=== PATIENT | male | born 1950 | race African-American/Black ===

== ENCOUNTER 2017-04-28 11:28 | Emergency (ER) | payer OTHER ==
--- NOTE | 2017-04-28 13:05 | ED Physician Documentation ---
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 Started with fevers and body aches and then rapidly developed into chest congestion and productive cough which has been persistent but without current fevers or shortness of breath.) Review of Systems Constitutional: reports: Fatigue. denies: Fever, Chills Ears: denies: Ear pain Nose: reports: Rhinorrhea / runny nose, Congestion Throat: denies: Sore throat Cardiac: reports: Chest pain / pressure (with cough only) Respiratory: reports: Cough. denies: Dyspnea GI: denies: Abdominal Pain PD PAST MEDICAL HISTORY - Past Medical History Past Medical History: Yes Cardiovascular: Hypertension GI: GERD - Past Surgical History Past Surgical History: Yes Ortho: Arthroscopic surgery - Present Medications Home Medications: Ambulatory Orders Medication Instructions Recorded Confirmed Atenolol [Tenormin] 0 mg PO ONCE 10/27/12 10/27/12 Albuterol Sulfate [Proventil Hfa 1 - 2 puffs IH Q4H PRN #1 04/28/17 Inhaler] [email or web address] Azithromycin [Zithromax] 250 mg PO DAILY #6 tablet 04/28/17 guaiFENesin/CODEINE [Robitussin AC] 5 - 10 ml PO Q6H PRN #120 ml 04/28/17 raNITIdine [Zantac] 0 BID 04/28/17 - Allergies Allergies/Adverse Reactions: Allergies Allergy/AdvReac Type Severity Reaction Status Date / Time No Known Drug Allergies Allergy Verified 04/28/17 12:58 - Social History Does the pt smoke?: No Smoking Status: Never smoker Does the pt drink ETOH?: No Does the pt have substance abuse?: No - Immunizations Immunizations are current?: Yes PD ED PE NORMAL - Vitals Vital signs reviewed: Yes - General General: Alert and oriented X 3, No acute distress - HEENT HEENT: PERRL, EOMI - Neck Neck: Supple, no meningeal sign, No bony TTP - Cardiac Cardiac: RRR, No murmur - Respiratory Respiratory: No respiratory distress, Other (bibasilar crackles and mild wheezes throughout, no focal findings.) - Abdomen Abdomen: Non tender - Extremities Extremities: No edema, No calf tenderness / cord - Neuro Neuro: Alert and oriented X 3, Normal speech Results - Vitals Vitals: Vital Signs - 24 hr 04/28/17 11:34 Temperature 37.0 C Heart Rate 67 Respiratory 20 Rate Blood Pressure 164/85 H O2 Saturation 97 Oxygen O2 Source Room air - EKG (time done) 1142 Rate: Rate (enter#) (66) Rhythm: NSR (with PACs) [place]: Normal Intervals: Prolonged [place] QRS: Normal Ischemia: T wave inversion (Jeevan V3-V6) Compare to prior EKG: Unchanged from prior EKG (no sig ischemic chg since ) Computer interpretation: Agree with computer PD MEDICAL DECISION MAKING - ED course ED course: 67-year-old gentleman with clinically what sounds like bronchitis. He does have an abnormal EKG, but there is no ischemic change since 2012, and that EKG was documented as having no EKG changes over the prior 4 years. He was given a copy of EKG to share with his doctor, but clinically this is not related to his ongoing illness which is bronchitic. Departure - Departure Disposition: Home, Self Care Clinical Impression: Bronchitis, Abnormal EKG Condition: Good Record reviewed to determine appropriate education?: Yes Instructions: ED Bronchitis Asthmatic Prescriptions: Albuterol Sulfate [Proventil Hfa Inhaler] 1 - 2 puffs IH Q4H PRN #1 [email or web address] PRN Reason: Cough Azithromycin [Zithromax] 250 mg PO DAILY #6 tablet guaiFENesin/CODEINE [Robitussin AC] 5 - 10 ml PO Q6H PRN #120 ml PRN Reason: Cough Comments: Follow-up with your doctor, next available appointment. Share the copy of the EKG with him, he may want to order follow-up testing based on this, but as we discussed this is not related to your ongoing illness today. Your blood pressure was elevated today on check into the emergency department. This does not mean that you have hypertension, it is a common phenomenon to come to the emergency department and have elevated blood pressure. I recommend that you see your primary care physician within the week to have it rechecked when you are feeling better.
[2017-04-28 13:14] VITALS: BP 149/95
== END 2017-04-28 13:09 | disposition home or self-care (01) ==
LOC: ED 11:28
DX: J40 Bronchitis, not specified as acute or chronic (principal); R94.31 Abnormal electrocardiogram [ECG] [EKG]; I10 Essential (primary) hypertension; K21.9 Gastro-esophageal reflux disease without esophagitis
CPT/HCPCS: 93005; 99283; 99284

== ENCOUNTER 2018-05-02 05:48 | Emergency (ER) | payer OTHER ==
--- NOTE | 2018-05-02 05:52 | ED Physician Documentation ---
PD HPI URI - Stated complaint Stated Complaint: SORE THROAT - History obtained from History obtained from: Patient - History of Present Illness Timing - onset: How many days ago (2) Timing duration: Days (2) Timing details: Abrupt onset, Still present Associated symptoms: Fever (mild), Sore throat, Swollen nodes. No: Nasal congestion, Rhinorrhea, Dry cough Contributing factors: No: Sick contact Worsened by: Other (swallowing) Recently seen: Not recently seen Review of Systems Constitutional: reports: Fever (mild) Nose: denies: Rhinorrhea / runny nose, Congestion Throat: reports: Sore throat Respiratory: denies: Cough GI: denies: Nausea, Vomiting, Diarrhea Skin: denies: Rash PD PAST MEDICAL HISTORY - Past Medical History Cardiovascular: Hypertension GI: GERD - Past Surgical History Past Surgical History: Yes Ortho: Arthroscopic surgery - Present Medications Home Medications: Ambulatory Orders Medication Instructions Recorded Confirmed Atenolol [Tenormin] 25 mg PO DAILY 10/27/12 05/02/18 raNITIdine [Zantac] 150 mg PO BID 04/28/17 05/02/18 Cephalexin [Keflex] 500 mg PO Q6H #28 capsule 05/02/18 Dexamethasone [Decadron] 4 mg PO DAILY #5 tablet 05/02/18 Naproxen 500 mg PO BID #20 tablet 05/02/18 Triamterene/Hydrochlorothiazid 1 cap PO DAILY 05/02/18 05/02/18 [Triamterene-Hctz 37.5-25 mg Cp] - Allergies Allergies/Adverse Reactions: Allergies Allergy/AdvReac Type Severity Reaction Status Date / Time No Known Drug Allergies Allergy Verified 05/02/18 05:57 - Social History Does the pt smoke?: No Smoking Status: Never smoker Does the pt drink ETOH?: No Does the pt have substance abuse?: No - Immunizations Immunizations are current?: Yes PD ED PE NORMAL - Vitals Vital signs reviewed: Yes - General General: Alert and oriented X 3, Well developed/nourished, Other (appears in p ain with swallowing. Slight distortion of voice.) - HEENT HEENT: Ears normal, Dentition benign. No: Pharynx benign (pharynx with moderate redness without apparent exudates. There is some left peritonsillar mild swelling without bulging. ) - Neck Neck: Supple, no meningeal sign, Other (anterior adenopathy, mild, tender. ) - Cardiac Cardiac: RRR, No murmur - Respiratory Respiratory: Clear bilaterally - Derm Derm: Normal color, Warm and dry Results - Vitals Vitals: Vital Signs - 24 hr 05/02/18 06:00 Temperature 36.7 C Heart Rate 57 L Respiratory 18 Rate Blood Pressure 189/89 H O2 Saturation 100 Oxygen O2 Source Room air PD MEDICAL DECISION MAKING - ED course Complexity details: considered differential (Very focused symptoms of sore throat and significant pain with swallowing and slight distortion of voice. There is no obvious peritonsillar abscess but some redness and mild swelling suggestive of peritonsillar cellulitis. It does not have the exudates consistent with obvious strep but still be concerned about a bacterial cause. We will treat him with anti-inflammatories and antibiotics.), d/w patient Departure - Departure Disposition: 01 Home, Self Care Clinical Impression: Peritonsillar cellulitis Acute tonsillitis Qualifiers: Pharyngitis/tonsillitis etiology: unspecified etiology Qualified Code(s): J03.90 - Acute tonsillitis, unspecified Condition: Stable Record reviewed to determine appropriate education?: Yes Instructions: ED Peritonsillar Infec Abx No I andD Prescriptions: Cephalexin [Keflex] 500 mg PO Q6H #28 capsule Dexamethasone [Decadron] 4 mg PO DAILY #5 tablet Naproxen 500 mg PO BID #20 tablet Comments: Your symptoms being so focused in the tonsil area would be suggestive of bacterial infection. We will treated with cephalexin antibiotic as directed for a week. Decadron steroid for inflammation daily for 5 more days. Naproxen anti-inflammatory for pain as well. Add Tylenol or the hydrocodone if needed initially for worse pain. Recheck if not improving over the next several days.
[2018-05-02] MEDS ORDERED: ACETAMINOPHEN 325 MG TABLET PO STA (06:15)
[2018-05-02] MEDS ORDERED: IBUPROFEN 600 MG TABLET PO STA (06:15)
[2018-05-02] MEDS ORDERED: cephALEXin 250 MG CAPSULE PO STA (06:15)
[2018-05-02] MEDS ORDERED: HYDROcod/ACET 5/325 Prepack 4 PO STA (06:15)
[2018-05-02] MEDS ORDERED: DEXAMETHASONE 10 MG/ML VIAL PO STA (06:15)
[2018-05-02 06:39] VITALS: BP 198/100
== END 2018-05-02 06:40 | disposition home or self-care (01) ==
LOC: ED 05:48
DX: J03.90 Acute tonsillitis, unspecified (principal); I10 Essential (primary) hypertension
CPT/HCPCS: 87070; 87430; 99283; A9270

== ENCOUNTER 2018-09-23 22:53 | Emergency (ER) | payer OTHER ==
--- NOTE | 2018-09-23 23:04 | ED Physician Documentation ---
PD HPI NECK PAIN - Stated complaint Stated Complaint: NECK PX - Chief complaint Chief Complaint: Trauma Ch/Bk - History obtained from History obtained from: Patient, Family - History of Present Illness Timing - onset: Today, Other (All day) Timing - details: Abrupt onset Pain level now: 8 Location: Upper, Right, Left Quality: Pain Associated symptoms: No: Fever, Weakness, Numbness, Incontinent of urine Improves with: Nothing Worsened by: Movement Contributing factors: Other (Has a sitdown job) Recently seen: Not recently seen - Additional information Additional information: Is a 68-year-old man who presents with his complains that he woke up this morning and his neck was a little sore and is gotten progressively more painful through the day. Is worse with movement. He says it starts at the base of his skull bilaterally and comes down all the way into the tops of his shoulders. He has not noted any exacerbating factors and he took 6 ibuprofen tablets at one time through 4 hours prior to presentation without relief of his pain. He still had an 8 out of 10. Denies pain radiating down his arms or legs but he did have some pain in his left wrist 4 days ago that was quite excruciating to the point he was thinking about going to the doctor then it just resolved. He developed a sore throat 2 days ago and that has also resolved. Denies any history of gout and he has had no other joint involvement. Patient denies any fever. No numbness or tingling into the arms or legs. He has not noted any visual changes. He said no dysuria. 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 Review of Systems Constitutional: denies: Fever Eyes: denies: Loss of vision, Decreased vision Throat: reports: Sore throat Respiratory: denies: Dyspnea GI: denies: Nausea, Vomiting : denies: Dysuria Skin: denies: Rash Musculoskeletal: reports: Neck pain, Joint pain Neurologic: denies: Focal weakness, Numbness, Syncope PD PAST MEDICAL HISTORY - Past Medical History Cardiovascular: Hypertension GI: GERD - Past Surgical History Past Surgical History: Yes Ortho: Arthroscopic surgery - Present Medications Home Medications: Ambulatory Orders Medication Instructions Recorded Confirmed Atenolol [Tenormin] 25 mg PO DAILY 10/27/12 05/02/18 RX: raNITIdine [Zantac] 150 mg PO BID 04/28/17 05/02/18 Cephalexin [Keflex] 500 mg PO Q6H #28 capsule 05/02/18 RX: Naproxen 500 mg PO BID #20 tablet 05/02/18 Triamterene/Hydrochlorothiazid 1 cap PO DAILY 05/02/18 05/02/18 [Triamterene-Hctz 37.5-25 mg Cp] dexAMETHasone [Decadron] 4 mg PO DAILY #5 tablet 05/02/18 Hydrocodone/Acetaminophen 1 - 2 each PO Q6H PRN #14 tablet 09/24/18 [Hydrocodon-Acetaminophen 5-325] - Allergies Allergies/Adverse Reactions: Allergies Allergy/AdvReac Type Severity Reaction Status Date / Time No Known Drug Allergies Allergy Verified 09/23/18 23:01 - Social History Does the pt smoke?: No Smoking Status: Never smoker Does the pt drink ETOH?: No Does the pt have substance abuse?: No - Immunizations Immunizations are current?: Yes - POLST Patient has POLST: No PD ED PE NORMAL - Vitals Vital signs reviewed: Yes - General General: Alert and oriented X 3, Well developed/nourished, Other (Patient looks uncomfortable with his head looking down. He does not want to lift his head up and look up because it is clearly uncomfortable.) - HEENT HEENT: Atraumatic, PERRL, Moist mucous membranes, Pharynx benign - Neck Neck: No bony TTP, No adenopathy, Thyroid normal, Other (There is tenderness with palpation across the cervical paraspinal muscles bilaterally from the insertion on the occiput down to the tops of the shoulders.) - Cardiac Cardiac: RRR, No murmur - Respiratory Respiratory: No respiratory distress, Clear bilaterally - Back Back: No CVA TTP - Derm Derm: Normal color, No rash - Extremities Extremities: No deformity, Other (Minimal edema.) - Neuro Neuro: Alert and oriented X 3, drafter electronic 2-12 intact, No motor deficit, No sensory deficit, Normal speech, Other (Reflexes symmetrical bilaterally) - Psych Psych: Normal mood, Normal affect Results - Vitals Vitals: Vital Signs - 24 hr 09/23/18 09/24/18 23:25 03:30 Temperature 36.5 C 36.5 C Heart Rate 55 L 57 L Respiratory 18 16 Rate Blood Pressure 170/95 H 176/111 H O2 Saturation 100 100 Oxygen O2 Source Room air - Rads (name of study) cervical xray Radiology: EMP read contemporaneously, See rad report (Degen changes, most pronounced at C3-4) PD MEDICAL DECISION MAKING - ED course Complexity details: reviewed results, re-evaluated patient, d/w patient ED course: Patient was given 2 hydrocodone tablets and felt significantly better. I think his pain is due to the degenerative changes and subsequent muscle spasms. I think his job contributes to this as well. Is recommended to ice the neck take ibuprofen and is given a prescription for hydrocodone just 14 tablets. Of encouraged him to follow-up with his primary care provider if the pain persists. Departure - Departure Disposition: 01 Home, Self Care Clinical Impression: Neck pain Condition: Good Instructions: ED Neck Back Pain General Follow-Up: KAUR CONRAD MD [Primary Care Provider] - Prescriptions: Hydrocodone/Acetaminophen [Hydrocodon-Acetaminophen 5-325] 1 - 2 each PO Q6H PRN #14 tablet PRN Reason: pain Comments: Ice can sometimes help the pain. Take ibuprofen 3 to 4 tablets every 8 hours with food as needed for pain. You can use the hydrocodone if needed but do not drive or operate machinery if you are taking that medication and do not take additional Tylenol. Follow-up with your primary care provider if the pain persists for further management. Discharge Date/Time: 09/24/18 03:30
[2018-09-24] MEDS ORDERED: HYDROcod/ACETAM 5/325 MG TABLET PO STA (01:27)
--- NOTE | 2018-09-24 02:37 | XRAY Report ---
Reason: neck pain Procedure Date: 09/24/2018 Accession Number: [id number] / [id number] Procedure: XR - Cervical Spine 2 View CPT Code: FULL RESULT: EXAM: CERVICAL SPINE RADIOGRAPHY EXAM DATE: 09/24/2018 02:17 AM. CLINICAL HISTORY: Neck pain. COMPARISONS: None. TECHNIQUE: 3 views. FINDINGS: Alignment: Normal. No spondylolisthesis or scoliosis. Bones: The cervical vertebral bodies and posterior elements are well visualized from the skull base through C7-T1. No fractures or bone lesions. Disks: There is cervical spondylosis with degeneration and narrowing of the disks C6-C7. There are marginal osteophytes. In addition there are degenerative changes at the facet joints from C3-C7. The lateral injection is compatible with fusion across the C2-C3 levels both at the level of the disk and the posterior elements. The fusion is likely congenital. Soft Tissues: Normal. No prevertebral soft tissue swelling. The visualized lung apices are clear. IMPRESSION: 1. Cervical spondylosis as described mostly involving the disk C6-C7 and the facet joints. 2. 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 RADIA
[2018-09-24 03:41] VITALS: BP 176/111
== END 2018-09-24 03:30 | disposition home or self-care (01) ==
LOC: ED 22:53
DX: M54.2 Cervicalgia (principal); I10 Essential (primary) hypertension
CPT/HCPCS: 72040; 99283; 99284; A9270

== ENCOUNTER 2020-07-11 16:12 | Inpatient (IN) | payer OTHER ==
[2020-07-11 16:55] LABS: BASOPHILS # (AUTO) 0.1 10^3/uL (0.0-0.1); BASOPHILS % (AUTO) 0.5 %; EOSINOPHILS # (AUTO) 0.1 10^3/uL (0.0-0.7); EOSINOPHILS % (AUTO) 0.5 %; HGB - HEMOGLOBIN 16.3 g/dL (14.0-18.0); LYMPHOCYTES # (AUTO) 1.2 10^3/uL (1.5-3.5); LYMPHOCYTES % (AUTO) 9.8 %; MEAN CORPUSCULAR HEMOGLOBIN 29.2 pg (27.0-31.0); MEAN CORPUSCULAR VOLUME 85.9 fL (80.0-94.0); MEAN PLATELET VOLUME 10.2 fL (7.4-11.4); MONOCYTES % (AUTO) 8.1 %; NEUTROPHILS # (AUTO) 10.2 10^3/uL (1.5-6.6); NEUTROPHILS % (AUTO) 80.9 %; PLT - PLATELET COUNT 358 10^3/uL (130-450); RED BLOOD COUNT 5.59 10^6/uL (4.70-6.10); WHITE BLOOD COUNT 12.6 x10^3/uL (4.8-10.8)
[2020-07-11 17:09] LABS: ALBUMIN 3.4 g/dL (3.2-5.5); ALBUMIN/GLOBULIN RATIO 0.9 (1.0-2.2); BILIRUBIN,TOTAL 1.1 mg/dL (0.2-1.0); CREATININE 3.7 mg/dL (0.6-1.2); TOTAL PROTEIN 7.4 g/dL (6.7-8.2)
--- OUTSIDE RECORDS SUMMARY | 2020-07-11 17:11 | EXTERNAL MEDICAL SUMMARY RPT | Continuity of Care Document ---
:1950 Demographics Phone Unavailable Preferred Language Unknown Marital Status Unknown Restorationist Affiliation Unknown Race Unknown Ethnic Group Unknown Author Organization [facility] Address [address] [id number] Phone Allergies Encounters Medications Problems Results
[2020-07-11] MEDS ORDERED: SODIUM CHLORIDE 0.9% 1,000 ML IV STA ×2 (17:37→18:09)
[2020-07-11] MEDS ORDERED: MORPHINE 2 MG/ML CARPUJECT IVP STA (18:09)
[2020-07-11] MEDS ORDERED: ONDANSETRON 4 MG/2 ML VIAL IVP STA (18:09)
--- NOTE | 2020-07-11 18:47 | CT Report ---
PROCEDURE: Abdomen/Pelvis WO INDICATIONS: diffuse abd pain, vomiting, renal failure TECHNIQUE: Noncontrast 5 mm thick sections acquired from the diaphragms to the symphysis. 5 mm coronal and sagi ttal reformats were then performed. For radiation dose reduction, the following was used: automated exposure control, adjustment of mA and/or kV according to patient size. COMPARISON: None. FINDINGS: Image quality: Excellent. ABDOMEN: Lung bases: Lung bases are clear. Heart size is normal. Enlarged lymph nodes noted in the pericardi al fat compatible Solid organs: Multiple large and small hypoattenuating lesions are noted in the liver highly suspicio us for metastatic disease. Gallbladder is poorly visualized, but grossly normal. Pancreas is normal in contours. No adrenal nodules. Kidneys are normal in size, without hydronephrosis or nephrolithia sis. Bilateral rounded hypoattenuating lesions in the kidneys likely represent cysts, but can't be de finitely characterized without the benefit of intravenous contrast. Peritoneum and bowel: There is a large soft tissue density mass with irregular margins involving the distal left lesser curvature of the stomach, the head of the pancreas and the proximal transverse co narcisa concerning for primary malignancy or could be arising from the stomach pancreas are:. Unenhanced bowel loops demonstrate normal wall thickness and caliber. Moderate amount of ascites scattered thro ughout the abdomen and pelvis. No free air. Nodes and vessels: Multiple enlarged lymph nodes noted in the right upper quadrant mesentery compatib le with metastatic lymphadenopathy. Aortocaval retroperitoneal lymphadenopathy noted compatible with metastatic disease. Scattered nodules noted in the omentum and mesentery concerning for early metasta tic disease. Aorta and inferior vena cava are normal in caliber. Scattered atherosclerotic calcificat ions are noted in the abdominal and pelvic vasculature. Miscellaneous: No ventral hernias. PELVIS: Genitourinary: Bladder wall thickness is normal. Metastatic disease. Miscellaneous: No inguinal hernias or adenopathy. Bones: No suspicious bony lesions. No vertebral body compression fractures. Spine degenerative disc disease and facet arthropathy are noted. IMPRESSION: 1. Large soft tissue density mass involving the distal distal stomach, pancreatic head and transverse colon highly suspicious for primary malignancy which could be arising from the stomach, colon or christensen creas. 2. Hepatic metastatic disease. 3. Mesenteric and retroperitoneal metastatic lymphadenopathy. Metastatic lymphadenopathy also noted i n the visualized pericardial fat 4. Moderate amount of ascites. No free intraperitoneal air 5. No dilated loops of bowel. Reviewed by: Gloria Alvarez MD, PhD on 07/11/2020 6:45 PM PDT Approved by: Gloria Alvarez MD, PhD on 07/11/2020 6:45 PM PDT Station ID: [id number]
--- NOTE | 2020-07-11 18:47 | ED Physician Documentation ---
History of Present Illness - Stated complaint Stated Complaint: VOMITING, NAUSEA,BLOATING - Chief complaint Chief Complaint: Abd Pain - History obtained from History obtained from: Patient - History of Present Illness Timing: How many days ago (8) Pain level max: 5 Pain level now: 4 - Additonal information Additional information: 70-year-old male presents to the emergency department with vomiting and abdominal pain for the past week. He states that nothing makes it better or worse. Has been unable to keep anything down. States his abdomen feels swollen and like he has bad "reflux". No fevers. No chills. Review of Systems Ten Systems: 10 systems reviewed and negative Constitutional: denies: Fever, Chills Respiratory: denies: Cough GI: reports: Abdominal Pain, Nausea, Vomiting. denies: Hematemesis, Bloody / black stool : denies: Dysuria Skin: denies: Rash Musculoskeletal: denies: Neck pain, Back pain Neurologic: denies: Headache PD PAST MEDICAL HISTORY - Past Medical History Past Medical History: Yes Cardiovascular: Hypertension GI: GERD - Past Surgical History Past Surgical History: Yes Ortho: Arthroscopic surgery - Present Medications Home Medications: Ambulatory Orders Medication Instructions Recorded Confirmed atenoloL [Tenormin] 25 mg PO DAILY 10/27/12 05/02/18 raNITIdine [Zantac] 150 mg PO BID 04/28/17 05/02/18 Naproxen 500 mg PO BID #20 tablet 05/02/18 Triamterene/Hydrochlorothiazid 1 cap PO DAILY 05/02/18 05/02/18 [Triamterene-Hctz 37.5-25 mg Cp] cephALEXin [Keflex] 500 mg PO Q6H #28 capsule 05/02/18 dexAMETHasone [Decadron] 4 mg PO DAILY #5 tablet 05/02/18 Hydrocodone/Acetaminophen 1 - 2 each PO Q6H PRN #14 tablet 09/24/18 [Hydrocodon-Acetaminophen 5-325] - Allergies Allergies/Adverse Reactions: Allergies Allergy/AdvReac Type Severity Reaction Status Date / Time No Known Drug Allergies Allergy Verified 07/11/20 16:23 - Social History Does the pt smoke?: No Smoking Status: Never smoker Does the pt drink ETOH?: No Does the pt have substance abuse?: No - Immunizations Immunizations are current?: Yes - POLST Patient has POLST: No PD ED PE NORMAL - Vitals Vital signs reviewed: Yes - General General: Alert and oriented X 3, No acute distress, Well developed/nourished - HEENT HEENT: PERRL, Moist mucous membranes - Neck Neck: Supple, no meningeal sign - Cardiac Cardiac: RRR, Strong equal pulses - Respiratory Respiratory: No respiratory distress, Clear bilaterally - Abdomen Abdomen: Soft, Non tender, Other (Distended abdomen, nontender) - Back Back: No CVA TTP, No spinal TTP - Derm Derm: Warm and dry - Extremities Extremities: No edema - Neuro Neuro: Alert and oriented X 3 - Psych Psych: Normal mood, Normal affect Results - Vitals Vitals: Vital Signs - 24 hr 07/11/20 07/11/20 07/11/20 16:16 16:23 18:23 Temperature 36.7 C 36.7 C 36.6 C Heart Rate 78 78 76 Respiratory 19 19 18 Rate Blood Pressure 140/80 H 140/80 H 136/80 H O2 Saturation 97 97 98 Oxygen O2 Source Room air - Labs Labs: Laboratory Tests 07/11/20 07/11/20 16:51 16:51 WBC 12.6 H RBC 5.59 Hgb 16.3 Hct 48.0 MCV 85.9 MCH 29.2 MCHC 34.0 RDW 13.0 Plt Count 358 MPV 10.2 Neut # (Auto) 10.2 H Lymph # (Auto) 1.2 L [place] # (Auto) 1.0 Eos # (Auto) 0.1 Baso # (Auto) 0.1 Absolute Nucleated RBC 0.00 Nucleated RBC % 0.0 Sodium 134 L Potassium 4.0 Chloride 98 L Carbon Dioxide 22 Anion Gap 14.0 H BUN 64 H Creatinine 3.7 H Estimated GFR (MDRD) 20 L Glucose 130 H Calcium 9.0 Total Bilirubin 1.1 H AST 13 ALT 11 Alkaline Phosphatase 48 Total Protein 7.4 Albumin 3.4 Globulin 4.0 Albumin/Globulin Ratio 0.9 L Lipase 19 L - Rads (name of study) CT abdomen pelvis Radiology: Prelim report reviewed, EMP read contemporaneously, See rad report PD MEDICAL DECISION MAKING - ED course Complexity details: reviewed results, re-evaluated patient, considered differential, d/w patient, d/w [employer] consultant ED course: 70-year-old male presents to the emergency department with vomiting, dehydration, renal failure. Also found to have a large soft tissue density mass in the distal stomach, pancreatic head and transverse colon, possible malignancy. Appears to have metastatic disease as well. His baseline creatinine is around 1. It is at 3.[address] the patient in the hospital for vomiting, dehydration and renal failure. Discussed the case with Dr. Alejandra, hospitalist who accepts This document was made in part using voice recognition software. While efforts are made to proofread this document, sound alike and grammatical errors may occur. IMPRESSION: 1. Large soft tissue density mass involving the distal distal stomach, christensen creatic head and transverse colon highly suspicious for primary malignancy which could be arising from the stomach, colon or pancreas. 2. Hepatic metastatic disease. 3. Mesenteric and retroperitoneal metastatic lymphadenopathy. Metastatic lymphadenopathy also noted in the visualized pericardial fat 4. Moderate amount of ascites. No free intraperitoneal air 5. No dilated loops of bowel. Departure - Departure Disposition: 66 [facility] DC/Xfer Clinical Impression: Renal failure Qualifiers: Renal failure chronicity: acute Acute renal failure type: unspecified Qualified Code(s): N17.9 - Acute kidney failure, unspecified Ascites Qualifiers: Ascites type: malignant Qualified Code(s): R18.0 - Malignant ascites Metastatic cancer Qualifiers: Area of secondary neoplastic involvement: unspecified site Qualified Code(s): C79.9 - Secondary malignant neoplasm of unspecified site Condition: Stable Discharge Date/Time: 07/11/20 20:10
[2020-07-11] MEDS ORDERED: MORPHINE 2 MG/ML CARPUJECT IVP PRN (19:32)
[2020-07-11] MEDS ORDERED: SODIUM CHLORIDE FLUSH 0.9% 10 ML SYRINGE IVP PRN (19:32)
[2020-07-11] MEDS ORDERED: ACETAMINOPHEN 325 MG TABLET PO PRN (19:32)
--- NOTE | 2020-07-11 19:40 | HISTORY & PHYSICAL EXAMINATION ---
Chief Complaint - Chief Complaint Chief Complaint: Nausea and vomiting. History of Present Illness - Admitted From Admitted From:: Home - History Obtained From Records Reviewed: Yes History obtained from: Patient, ER Physician, EMR - History of Present Illness HPI Comment/Other: This is a 70-year-old male with a past medical history significant for hypertension, GERD, and history of lymphoma in remission since 1996 who presents today complaining of nausea/vomiting along with abdominal pain. He states his symptoms began about 4 to 5 days ago and have progressed on a daily basis. He has been unable to keep anything down during this time. He was able to only keep down a little bit of water here and there but for the most part he will vomit after having any oral intake. He denies any hematemesis. He does complain of heartburn and he is on Prilosec at home. He also has associated epigastric abdominal pain and has also had the hiccups which are becoming more prominent over the past few days. He also feels like his abdomen is more distended. He also feels constipated and his last bowel movement was nearly 1 week ago. He is passing gas. He reports no fevers, chills. He has never had a colonoscopy or endoscopy. He has done FOBT for colon cancer screening. He does report a history of lymphoma which was treated in 1996 at [facility]. He no longer sees oncology. In the emergency department, he was found to have acute kidney injury with a creatinine of 3.7 and a BUN of 64. A CT of the abdomen pelvis without contrast revealed an abdominal mass which may be of distal gastric origin versus pancreas versus colon as well as evidence of metastatic disease and ascites. He was given Zofran and IV fluids in the emergency department. Given the above findings, medicine was consulted for admission. I did discuss goals of care with the patient and he would like to be a full code. History - Past Medical History Cardiovascular: reports: Hypertension GI: reports: GERD MRSA Hx?: No - Past Surgical History Ortho: reports: Arthroscopic surgery - Family & Social History Family History Comment/Other: He denies any family history of cancer. He has one brother who from heart failure. His father from a stroke. Living arrangement: At home Living Situation: With spouse/s.o. Social History Notes: He lives at home with his . He works as a ict security specialist. He has lived in the [place] for over 15 years. He smoked a half a pack a day for about 20 years but quit in 1994. He denies any significant alcohol use. - POLST Patient has POLST: No Meds/Allgy - Home Medications Home Medications: Ambulatory Orders Medication Instructions Recorded Confirmed atenoloL [Tenormin] 25 mg PO DAILY 10/27/12 05/02/18 raNITIdine [Zantac] 150 mg PO BID 04/28/17 05/02/18 Naproxen 500 mg PO BID #20 tablet 05/02/18 Triamterene/Hydrochlorothiazid 1 cap PO DAILY 05/02/18 05/02/18 [Triamterene-Hctz 37.5-25 mg Cp] cephALEXin [Keflex] 500 mg PO Q6H #28 capsule 05/02/18 dexAMETHasone [Decadron] 4 mg PO DAILY #5 tablet 05/02/18 Hydrocodone/Acetaminophen 1 - 2 each PO Q6H PRN #14 tablet 09/24/18 [Hydrocodon-Acetaminophen 5-325] - Allergies Allergies/Adverse Reactions: Allergies Allergy/AdvReac Type Severity Reaction Status Date / Time No Known Drug Allergies Allergy Verified 07/11/20 16:23 Review of Systems - Constitutional Constitutional: denies: Fatigue, Fever, Chills, Poor appetite, Weight loss - Ears, Nose & Throat Ears, Nose & Throat: reports: Sore throat. denies: Nasal discharge, Nasal congestion - Cardiovascular Cariovascular: denies: Chest pain, Edema, Lightheadedness, Exertional dyspnea, Decr. exercise tolerance - Respiratory Respiratory: denies: Cough, SOB at rest, SOB with exertion - Gastrointestinal Gastrointestinal: reports: Abdominal pain, Abdominal distention, Constipation, Change in bowel habits, Nausea, Vomiting, Reflux/heartburn, Bloating, Other (Hiccups.). denies: Bile emesis, Thomas blood emesis - Genitourinary Genitourinary: denies: Dysuria, Frequency, Hematuria - Integumentary Integumentary: denies: Rash - Neurological Neurological: denies: General weakness, Focal weakness, Dizziness - Hematologic/Lymphatic Hematologic/Lymphatic: denies: Bruising, Bleeding tendencies - All Other Systems All Other Systems: reports: Reviewed and negative Prior Level of Functionality: He is independent with his ADL's. Exam - Vital Signs Reviewed Vital Signs: Yes Vital Signs: Vital Signs x48h Temp Pulse Resp BP Pulse Ox 07/11/20 18:23 36.6 C 76 18 136/80 H 98 07/11/20 16:23 36.7 C 78 19 140/80 H 97 07/11/20 16:16 36.7 C 78 19 140/80 H 97 - Physical Exam General Appearance: positive: No acute distress, Alert Eyes Bilateral: positive: Normal inspection, Conjunctivae nml ENT: positive: ENT inspection nml Neck: positive: Nml inspection Respiratory: positive: No respiratory distress. negative: Wheezes, Rales Cardiovascular: positive: Regular rate & rhythm, No murmur. negative: Tachycardia, Systolic murmur Abdomen: positive: Nml bowel sounds, Tenderness (Epigastric and left lower quadrant.). negative: No distention (Abdomen is distended.), Guarding, Rebound Skin: positive: Warm, Dry Extremities: positive: No pedal edema Neurologic/Psychiatric: positive: Motor nml. negative: Disoriented to person, Disoriented to place Conclusion/Plan - Problem List (1) Acute renal failure Conclusion/Plan: This is likely prerenal in injury secondary to poor oral intake due to the naus ea and vomiting. CT did not reveal evidence of obstruction. He is also on diuretics at home. At this time, we will hydrate him with IV lactated Ringer's. Hold his home hydrochlorothiazide. Avoid nephrotoxins. Monitor renal function and urine output. (2) Abdominal mass Conclusion/Plan: Unfortunately, CT of the abdomen pelvis revealed an abdominal mass which is concerning for malignancy with evidence of metastatic disease. It is unclear what the origin of this mass is as it could be the distal stomach versus pancreas versus colon. This is likely contributing to his ongoing nausea and vomiting. There is also evidence of ascites. We will admit for IV hydration due to his acute renal failure. We will hydrate him with IV lactated Ringer's and use Zofran as needed for nausea. Will discuss with general surgery for possible endoscopy. He will need further imaging once his renal function improves with either a CT with IV contrast or MRI of the abdomen. (3) Metastatic cancer Conclusion/Plan: Unfortunately, there appears to metastatic disease from thia abdominal mass. CT is concerning for hepatic metastatic disease as well as mesenteric and retroperitoneal lymphadenopathy. He will need further work-up of the mass as mentioned above and eventual outpatient follow-up with oncology. Qualifiers: Area of secondary neoplastic involvement: unspecified site Qualified Code(s): C79.9 - Secondary malignant neoplasm of unspecified site (4) History of lymphoma Conclusion/Plan: He has a history of lymphoma which has been in remission since 1996 and he was treated at [facility]. This does remain in the differential although felt to be less likely. (5) Hypertension Conclusion/Plan: He is currently normotensive. We will hold his home antihypertensives given his renal failure and that he is on diuretics. If he becomes hypertensive we will consider adding amlodipine. - Lab Results Lab results reviewed: Yes Fish Bones: 07/11/20 16:51 07/11/20 16:51 - Diagnostic Imaging Results Diagnostic Imaging Results: positive: Final report reviewed Core Measures - Anticipated LOS I expect patient to be DC'd or transferred within 96 hours.: Yes - Issues Hospital Issues and Management Plan: 70-year-old male presents with nausea and vomiting found to have acute renal failure as well as abdominal mass with likely metastatic disease. Will admit for further IV hydration and work-up of this mass. - DVT/VTE - Prophylaxis VTE/DVT Device ordered at admit?: Yes VTE/DVT Prophylaxis med ordered at admit?: Yes
--- OUTSIDE RECORDS SUMMARY | 2020-07-11 19:56 | EXTERNAL MEDICAL SUMMARY RPT | Continuity of Care Document ---
:1950 Demographics Phone Unavailable Preferred Language Unknown Marital Status Unknown L[employer]-Day Affiliation Unknown Race Unknown Ethnic Group Unknown Author Organization [facility] Address [address] [phone] Phone Allergies Encounters Medications Problems Results
[2020-07-11] MEDS ORDERED: chlorproMAZINE 25 MG TABLET PO PRN (20:11)
[2020-07-11 20:36] LABS: CORONAVIRUS 229E-RESP PCR NOT DETECTED; CORONAVIRUS HKU1-RESP PCR NOT DETECTED; CORONAVIRUS NL63-RESP PCR NOT DETECTED; CORONAVIRUS OC43-RESP PCR NOT DETECTED
[2020-07-11] MEDS: LACTATED RINGERS 1,000 ML IV SCH (20:36)
[2020-07-11 20:37] LABS: B. PARAPERTUSSIS- RESP PCR PAN NOT DETECTED; B. PERTUSSIS- RESP PCR PANEL NOT DETECTED; C. PNEUMONIAE- RESP PCR PANEL NOT DETECTED; HUMAN METAPNEUMOVIRUS NOT DETECTED; INFLUENZA A- RESP PCR PANEL NOT DETECTED; INFLUENZA B - RESP PCR PANEL NOT DETECTED; M. PNEUMONIAE- RESP PCR PANEL NOT DETECTED; PARAINFLUENZA VIRUS 1 NOT DETECTED; PARAINFLUENZA VIRUS 2 NOT DETECTED; PARAINFLUENZA VIRUS 3 NOT DETECTED; PARAINFLUENZA VIRUS 4 NOT DETECTED; RHINOVIRUS/ENTEROVIRUS NOT DETECTED; RSV- RESP PCR PANEL NOT DETECTED; SARS-CoV-2 -RESP PCR PANEL NOT DETECTED
[2020-07-11] MEDS ORDERED: chlorproMAZINE 25 MG in SODIUM CHLORIDE 0.9% 500 ML IV ONE (20:49)
[2020-07-11] MEDS: GABAPENTIN 300 MG CAPSULE PO SCH ×2 (21:04→21:09)
[2020-07-11] MEDS: HEPARIN 5,000 UNIT/ML VIAL SUBQ SCH (21:06)
[2020-07-11] MEDS: oxyCODONE 5 MG TABLET PO PRN (22:05)
[2020-07-11] MEDS: SODIUM CHLORIDE FLUSH 0.9% 10 ML SYRINGE IVP SCH (23:26)
[2020-07-11] MEDS: ONDANSETRON 4 MG/2 ML VIAL IVP PRN (23:44)
[2020-07-12] MEDS ORDERED: CALCIUM CARBONATE CHEW 500 MG TABLET PO PRN (00:13)
[2020-07-12] MEDS: LACTATED RINGERS 1,000 ML IV SCH ×3 (03:09→21:33)
[2020-07-12] MEDS: oxyCODONE 5 MG TABLET PO PRN (05:02)
[2020-07-12] MEDS: GABAPENTIN 300 MG CAPSULE PO SCH ×4 (05:02→21:36)
[2020-07-12 05:06] LABS: GLUCOSE, URINE (UA) NEGATIVE (NEGATIVE); KETONES,URINE (UA) 15 mg/dL (NEGATIVE); LEUKOCYTE ESTERASE, URINE NEGATIVE (NEGATIVE); NITRITE,URINE NEGATIVE (NEGATIVE); OCCULT BLOOD,URINE NEGATIVE (NEGATIVE); PROTEIN,URINE NEGATIVE (NEGATIVE); UROBILINOGEN,URINE 0.2 (NORMAL) E.U./dL (NORMAL)
[2020-07-12 05:07] LABS: CLARITY,URINE CLEAR (CLEAR)
[2020-07-12 05:09] LABS: BILIRUBIN,URINE NEGATIVE (NEGATIVE); ICTOTEST,URINE NEGATIVE
[2020-07-12 05:12] LABS: BASOPHILS # (AUTO) 0.1 10^3/uL (0.0-0.1); BASOPHILS % (AUTO) 0.4 %; EOSINOPHILS % (AUTO) 0.1 %; HCT - HEMATOCRIT 46.4 % (42.0-52.0); HGB - HEMOGLOBIN 15.3 g/dL (14.0-18.0); LYMPHOCYTES # (AUTO) 1.1 10^3/uL (1.5-3.5); LYMPHOCYTES % (AUTO) 8.2 %; MEAN CORPUSCULAR HEMOGLOBIN 29.2 pg (27.0-31.0); MEAN CORPUSCULAR VOLUME 88.5 fL (80.0-94.0); MEAN PLATELET VOLUME 10.6 fL (7.4-11.4); MONOCYTES # (AUTO) 1.1 10^3/uL (0.0-1.0); MONOCYTES % (AUTO) 8.5 %; NEUTROPHILS # (AUTO) 10.8 10^3/uL (1.5-6.6); NEUTROPHILS % (AUTO) 82.4 %; PLT - PLATELET COUNT 337 10^3/uL (130-450); RED BLOOD COUNT 5.24 10^6/uL (4.70-6.10); RED CELL DISTRIBUTION WIDTH 13.2 % (12.0-15.0); WHITE BLOOD COUNT 13.1 x10^3/uL (4.8-10.8)
[2020-07-12 05:19] LABS: CALCIUM 8.7 mg/dL (8.5-10.3); CREATININE 4.1 mg/dL (0.6-1.2); MAGNESIUM 2.2 mg/dL (1.7-2.8); POTASSIUM 4.6 mmol/L (3.5-5.0)
[2020-07-12] MEDS ORDERED: LACTATED RINGERS 1,000 ML IV ONE (07:13)
--- NOTE | 2020-07-12 07:50 | PROVIDER PROGRESS NOTE ---
Subjective - Prog Note Date Prog Note Date: 07/12/20 Prog Note Time: 07:50 - Subjective Subjective: he still feels miserable with bloating, nausea, dyspepsia and is asking for more tums and for Zantac. Not much better w symptoms but no vomitting. His cre atinine is worse this morning, not better. Tired, no fever. Current Medications - Current Medications Current Medications: My Active Orders 07/12/20 08:00 Pantoprazole [Protonix] 40 mg PO QDAC 07/12/20 09:00 Calcium Carbonate [Tums] 500 mg PO QID Objective - Vital Signs/Intake & Output Reviewed Vital Signs: Yes Intake & Output: Intake & Output 07/09/20 07/10/20 07/11/20 07/12/20 23:59 23:59 23:59 23:59 Intake Total 1000 1250 Output Total 350 Balance 1000 900 - Objective General Appearance: positive: Alert, Mild distress, Other (tired appearing black male, 6'5", 126 kg.) Eyes Bilateral: positive: PERRL ENT: positive: Dry mucous membranes Neck: positive: No JVD. negative: Stiff neck Respiratory: positive: No respiratory distress. negative: Wheezes, Rales, Rhonchi Cardiovascular: positive: Regular rate & rhythm, Systolic murmur. negative: Gallop/S4, Friction rub Abdomen: positive: Nml bowel sounds, Other (distended, large panus.). negative: Tenderness, Guarding, Rebound Skin: positive: Dry, Other (arms, hands, legs, feet cold to touch but his face and head are warm. He denies feeling cold and says he's comfortable.) Extremities: positive: Non-tender, No pedal edema Neurologic/Psychiatric: positive: Oriented x3, CN's nml (2-12), Motor nml - Lab Results Fish Bones: 07/12/20 04:45 07/12/20 04:45 Other Labs: Lab Results x24hrs 07/12/20 07/12/20 07/12/20 Range/Units 04:55 04:45 04:45 WBC 13.1 H (4.8-10.8) x10^3/uL RBC 5.24 (4.70-6.10) 10^6/uL Hgb 15.3 (14.0-18.0) g/dL Hct 46.4 (42.0-52.0) % MCV 88.5 (80.0-94.0) fL MCH 29.2 (27.0-31.0) pg MCHC 33.0 (32.0-36.0) g/dL RDW 13.2 (12.0-15.0) % Plt Count 337 (130-450) 10^3/uL MPV 10.6 (7.4-11.4) fL Neut # (Auto) 10.8 H (1.5-6.6) 10^3/uL Lymph # (Auto) 1.1 L (1.5-3.5) 10^3/uL [place] # (Auto) 1.1 H (0.0-1.0) 10^3/uL Eos # (Auto) 0.0 (0.0-0.7) 10^3/uL Baso # (Auto) 0.1 (0.0-0.1) 10^3/uL Absolute Nucleated RBC 0.00 x10^3/uL Nucleated RBC % 0.0 /100WBC Sodium 138 (135-145) mmol/L Potassium 4.6 (3.5-5.0) mmol/L Chloride 100 L (101-111) mmol/L Carbon Dioxide 26 (21-32) mmol/L Anion Gap 12.0 (6-13) BUN 69 H (6-20) mg/dL Creatinine 4.1 H (0.6-1.2) mg/dL Estimated GFR (MDRD) 18 L (>89) Glucose 124 H (70-100) mg/dL Calcium 8.7 (8.5-10.3) mg/dL Magnesium 2.2 (1.7-2.8) mg/dL Total Bilirubin (0.2-1.0) mg/dL AST (10-42) IU/L ALT (10-60) IU/L Alkaline Phosphatase (42-121) IU/L Total Protein (6.7-8.2) g/dL Albumin (3.2-5.5) g/dL Globulin (2.1-4.2) g/dL Albumin/Globulin Ratio (1.0-2.2) Lipase (22-51) U/L Urine Color YELLOW Urine Clarity CLEAR (CLEAR) Urine pH 5.0 (5.0-7.5) PH Ur Specific [place] 1.025 (1.002-1.030) Urine Protein NEGATIVE (NEGATIVE) mg/dL Urine Glucose (UA) NEGATIVE (NEGATIVE) mg/dL Urine Ketones 15 H (NEGATIVE) mg/dL Urine Occult Blood NEGATIVE (NEGATIVE) Urine Nitrite NEGATIVE (NEGATIVE) Urine Bilirubin NEGATIVE (NEGATIVE) Urine Urobilinogen 0.2 (NORMAL) (NORMAL) E.U./dL Ur Leukocyte Esterase NEGATIVE (NEGATIVE) Ur Microscopic Review NOT INDICATED Urine Culture Comments NOT INDICATED Nasal Adenovirus (PCR) Nasal B. parapertussis DNA (PCR) Nasal Coronavir 229E PCR Nasal Coronavir HKU1 PCR Nasal Coronavir NL63 PCR Nasal Coronavir OC43 PCR Nasal Enterovir/Rhinovir PCR Nasal Influenza B PCR Nasal Influenza A PCR Nasal Parainfluen 1 PCR Nasal Parainfluen 2 PCR Nasal Parainfluen 3 PCR Nasal Parainfluen 4 PCR Nasal RSV (PCR) Nasal B.pertussis DNA PCR Nasal C.pneumoniae (PCR) [place] Human Metapneumo PCR Nasal M.pneumoniae (PCR) Nasal SARS-CoV-2 (PCR) 07/11/20 07/11/20 07/11/20 Range/Units 19:42 16:51 16:51 WBC 12.6 H (4.8-10.8) x10^3/uL RBC 5.59 (4.70-6.10) 10^6/uL Hgb 16.3 (14.0-18.0) g/dL Hct 48.0 (42.0-52.0) % MCV 85.9 (80.0-94.0) fL MCH 29.2 (27.0-31.0) pg MCHC 34.0 (32.0-36.0) g/dL RDW 13.0 (12.0-15.0) % Plt Count 358 (130-450) 10^3/uL MPV 10.2 (7.4-11.4) fL Neut # (Auto) 10.2 H (1.5-6.6) 10^3/uL Lymph # (Auto) 1.2 L (1.5-3.5) 10^3/uL [place] # (Auto) 1.0 (0.0-1.0) 10^3/uL Eos # (Auto) 0.1 (0.0-0.7) 10^3/uL Baso # (Auto) 0.1 (0.0-0.1) 10^3/uL Absolute Nucleated RBC 0.00 x10^3/uL Nucleated RBC % 0.0 /100WBC Sodium 134 L (135-145) mmol/L Potassium 4.0 (3.5-5.0) mmol/L Chloride 98 L (101-111) mmol/L Carbon Dioxide 22 (21-32) mmol/L Anion Gap 14.0 H (6-13) BUN 64 H (6-20) mg/dL Creatinine 3.7 H (0.6-1.2) mg/dL Estimated GFR (MDRD) 20 L (>89) Glucose 130 H (70-100) mg/dL Calcium 9.0 (8.5-10.3) mg/dL Magnesium (1.7-2.8) mg/dL Total Bilirubin 1.1 H (0.2-1.0) mg/dL AST 13 (10-42) IU/L ALT 11 (10-60) IU/L Alkaline Phosphatase 48 (42-121) IU/L Total Protein 7.4 (6.7-8.2) g/dL Albumin 3.4 (3.2-5.5) g/dL Globulin 4.0 (2.1-4.2) g/dL Albumin/Globulin Ratio 0.9 L (1.0-2.2) Lipase 19 L (22-51) U/L Urine Color Urine Clarity (CLEAR) Urine pH (5.0-7.5) PH Ur Specific [place] (1.002-1.030) Urine Protein (NEGATIVE) mg/dL Urine Glucose (UA) (NEGATIVE) mg/dL Urine Ketones (NEGATIVE) mg/dL Urine Occult Blood (NEGATIVE) Urine Nitrite (NEGATIVE) Urine Bilirubin (NEGATIVE) Urine Urobilinogen (NORMAL) E.U./dL Ur Leukocyte Esterase (NEGATIVE) Ur Microscopic Review Urine Culture Comments Nasal Adenovirus (PCR) NOT DETECTED Nasal B. parapertussis DNA (PCR) NOT DETECTED Nasal Coronavir 229E PCR NOT DETECTED Nasal Coronavir HKU1 PCR NOT DETECTED Nasal Coronavir NL63 PCR NOT DETECTED Nasal Coronavir OC43 PCR NOT DETECTED Nasal Enterovir/Rhinovir PCR NOT DETECTED Nasal Influenza B PCR NOT DETECTED Nasal Influenza A PCR NOT DETECTED Nasal Parainfluen 1 PCR NOT DETECTED Nasal Parainfluen 2 PCR NOT DETECTED Nasal Parainfluen 3 PCR NOT DETECTED Nasal Parainfluen 4 PCR NOT DETECTED Nasal RSV (PCR) NOT DETECTED Nasal B.pertussis DNA PCR NOT DETECTED Nasal C.pneumoniae (PCR) NOT DETECTED [place] Human Metapneumo PCR NOT DETECTED Nasal M.pneumoniae (PCR) NOT DETECTED Nasal SARS-CoV-2 (PCR) NOT DETECTED Assessment/Plan - Problem List (1) Dyspepsia Impression: ranitidine and cimetidine are not on formulary. those are the meds he prefers. Protonix ordered with increased tums. this symptom may be a reflection of his disease. (2) Acute renal failure Impression: This is likely prerenal in injury secondary to poor oral intake due to the nausea and vomiting. CT did not reveal evidence of obstruction. He is also on diuretics at home. We are hydrating him with IV lactated Ringer's but his creatinine anukr this morning in spite of this. Plan: Continue to hold his home hydrochlorothiazide. Avoid nephrotoxins. Monitor renal function and urine output. I am repeating his labs late morning and if they are not improved I will call nephrology to clarify if he needs a higher level of care. (2) Abdominal mass Conclusion/Plan: Unfortunately, CT of the abdomen pelvis revealed an abdominal mass which is concerning for malignancy with evidence of metastatic disease. It is unclear what the origin of this mass is as it could be the distal stomach versus pancreas versus colon. This is likely contributing to his ongoing nausea and vomiting. There is also evidence of ascites. We have admitted for IV hydration with LR due to his acute renal failure and we ordered Zofran as needed for nausea. We have called Dr. Andrade and texted him to discuss with general surgery for possible endoscopy. He will need further imaging once his renal function improves with either a CT with IV contrast or MRI of the abdomen. (3) Metastatic cancer Conclusion/Plan: Unfortunately, there appears to metastatic disease from thia abdominal mass. CT is concerning for hepatic metastatic disease as well as mesenteric and retroperitoneal lymphadenopathy. He will need further work-up of the mass as mentioned above and eventual outpatient follow-up with oncology. Qualifiers: Area of secondary neoplastic involvement: unspecified site Qualified Code(s): C79.9 - Secondary malignant neoplasm of unspecified site (4) History of lymphoma Conclusion/Plan: He has a history of lymphoma which has been in remission since 1996 and he was treated at [facility]. This does remain in the differential although felt to be less likely. (5) Hypertension Conclusion/Plan: He is currently normotensive. We will hold his home antihypertensives given his renal failure and that he is on diuretics. If he becomes hypertensive we will consider adding amlodipine.
[2020-07-12] MEDS: HEPARIN 5,000 UNIT/ML VIAL SUBQ SCH ×2 (08:03→20:56)
[2020-07-12] MEDS: SODIUM CHLORIDE FLUSH 0.9% 10 ML SYRINGE IVP SCH ×2 (08:04→18:31)
[2020-07-12] MEDS: PANTOPRAZOLE 40 MG TABLET PO SCH (08:04)
[2020-07-12] MEDS: CALCIUM CARBONATE CHEW 500 MG TABLET PO SCH ×4 (08:04→20:58)
[2020-07-12] MEDS: ONDANSETRON 4 MG/2 ML VIAL IVP PRN (09:43)
[2020-07-12] MEDS ORDERED: PROMETHAZINE INJ 25 MG in SODIUM CHLORIDE 0.9% 50 ML IV PRN (11:46)
[2020-07-12] MEDS: PROCHLORPERAZINE 10 MG/2 ML VIAL IVP PRN (12:00)
[2020-07-12 12:12] LABS: CALCIUM 8.5 mg/dL (8.5-10.3); CREATININE 3.8 mg/dL (0.6-1.2)
[2020-07-12 12:27] LABS: HCT - HEMATOCRIT 45.2 % (42.0-52.0); HGB - HEMOGLOBIN 14.9 g/dL (14.0-18.0); MEAN CORPUSCULAR HEMOGLOBIN 29.3 pg (27.0-31.0); MEAN CORPUSCULAR VOLUME 88.8 fL (80.0-94.0); MEAN PLATELET VOLUME 10.4 fL (7.4-11.4); RED BLOOD COUNT 5.09 10^6/uL (4.70-6.10); RED CELL DISTRIBUTION WIDTH 13.2 % (12.0-15.0); WHITE BLOOD COUNT 13.9 x10^3/uL (4.8-10.8)
--- NOTE | 2020-07-12 13:36 | PHARMACY PROGRESS NOTE ---
- Best Possible Medication History Admit Date and Time: 07/11/201931 Processed by: Pharmacy Medication History completed: Yes Patient Interview: Completed Secondary Source(s): Prescription bottles As the person ultimately responsible for medication therapy, providers are able to order a medication from an existing home medication list in [facility] via the "Reconcile Routine" prior to Confirmation of that medication by user support analyst supervisor. Such practice is discouraged except when the physician, in their clinical judgment, deems that a medical need exists for a medication without regard to previous use.
[2020-07-12 17:44] LABS: HCT - HEMATOCRIT 43.5 % (42.0-52.0); HGB - HEMOGLOBIN 14.5 g/dL (14.0-18.0); MEAN CORPUSCULAR HEMOGLOBIN 29.5 pg (27.0-31.0); MEAN CORPUSCULAR HGB CONC 33.3 g/dL (32.0-36.0); MEAN CORPUSCULAR VOLUME 88.4 fL (80.0-94.0); MEAN PLATELET VOLUME 10.3 fL (7.4-11.4); RED BLOOD COUNT 4.92 10^6/uL (4.70-6.10); RED CELL DISTRIBUTION WIDTH 13.2 % (12.0-15.0); WHITE BLOOD COUNT 15.4 x10^3/uL (4.8-10.8)
[2020-07-12] MEDS ORDERED: LIDOCAINE 2% URO-JET 5 ML SYRINGE UR ONE (17:59)
[2020-07-12] MEDS: SODIUM/POTASSIUM/MAG SULFATES 354 ML PREP KIT PO SCH (19:44)
[2020-07-13 00:07] LABS: HCT - HEMATOCRIT 43.3 % (42.0-52.0); HGB - HEMOGLOBIN 14.4 g/dL (14.0-18.0); MEAN CORPUSCULAR HEMOGLOBIN 28.9 pg (27.0-31.0); MEAN CORPUSCULAR HGB CONC 33.3 g/dL (32.0-36.0); MEAN CORPUSCULAR VOLUME 86.8 fL (80.0-94.0); MEAN PLATELET VOLUME 10.5 fL (7.4-11.4); RED BLOOD COUNT 4.99 10^6/uL (4.70-6.10); RED CELL DISTRIBUTION WIDTH 13.3 % (12.0-15.0)
[2020-07-13] MEDS: oxyCODONE 5 MG TABLET PO PRN (01:13)
[2020-07-13] MEDS: SODIUM CHLORIDE FLUSH 0.9% 10 ML SYRINGE IVP SCH ×3 (02:23→17:09)
[2020-07-13] MEDS: LACTATED RINGERS 1,000 ML IV SCH ×3 (04:30→14:53)
[2020-07-13] MEDS ORDERED: SODIUM/POTASSIUM/MAG SULFATES 354 ML PREP KIT PO SCH (05:00)
[2020-07-13] MEDS: SODIUM/POTASSIUM/MAG SULFATES 354 ML PREP KIT PO SCH (05:09)
[2020-07-13 05:18] LABS: BASOPHILS % (AUTO) 0.3 %; HCT - HEMATOCRIT 41.8 % (42.0-52.0); HGB - HEMOGLOBIN 14.2 g/dL (14.0-18.0); LYMPHOCYTES % (AUTO) 6.1 %; MEAN CORPUSCULAR HEMOGLOBIN 29.5 pg (27.0-31.0); MEAN CORPUSCULAR VOLUME 86.9 fL (80.0-94.0); MEAN PLATELET VOLUME 10.3 fL (7.4-11.4); MONOCYTES % (AUTO) 9.3 %; NEUTROPHILS % (AUTO) 83.6 %; PLT - PLATELET COUNT 287 10^3/uL (130-450); RED BLOOD COUNT 4.81 10^6/uL (4.70-6.10); RED CELL DISTRIBUTION WIDTH 13.2 % (12.0-15.0); WHITE BLOOD COUNT 17.6 x10^3/uL (4.8-10.8)
[2020-07-13 05:24] LABS: ABNORMAL LYMPHS % (MANUAL) 0 %; BAND NEUTROPHILS % (MANUAL) 0 %
[2020-07-13 05:33] LABS: CALCIUM 8.3 mg/dL (8.5-10.3); CREATININE 3.3 mg/dL (0.6-1.2); MAGNESIUM 1.9 mg/dL (1.7-2.8); POTASSIUM 3.5 mmol/L (3.5-5.0)
[2020-07-13 05:38] LABS: DIFFERENTIAL COMMENT MANUAL DIFFERENTIAL; LYMPHOCYTES # (MANUAL) 1.8 10^3/uL (1.5-3.5); LYMPHOCYTES % (MANUAL) 10 %; MONOCYTES # (MANUAL) 2.5 10^3/uL (0.0-1.0); NEUTROPHILS # (MANUAL) 13.4 10^3/uL (1.5-6.6); PLATELET ESTIMATE, MANUAL NORMAL (130-450,000) (NORMAL); PLATELET MORPHOLOGY NORMAL APPEARANCE (NORMAL); RBC MORPHOLOGY (MULTIPLE) NORMAL APPEARANCE (NORMAL); WBC MORPHOLOGY (MULTIPLE) NORMAL APPEARANCE (NORMAL)
[2020-07-13] MEDS: PANTOPRAZOLE 40 MG TABLET PO SCH (06:14)
[2020-07-13] MEDS: ONDANSETRON 4 MG/2 ML VIAL IVP PRN (07:58)
--- NOTE | 2020-07-13 08:11 | PROVIDER PROGRESS NOTE ---
Progress Note The patient was seen by general surgery last night, and he is scheduled for a EGD and colonoscopy today. The Suprep for his colonoscopy was not well tolerated. Nausea was made worse. He continues to have significant abdominal discomfort and dyspepsia. Is passing gas. Having bowel movements. Occasional coffee-ground emesis. His main manifestation of all this is just misery, laying on his side, eyes closed trying to get through it. BUN his continue to rise, creatinine has stayed relatively stable if not slightly improved. Nursing was alarmed yesterday and kept on stating that he had greater than a liter in his bladder and he was having no urine output. After numerous Hall attempts Dr. Andrade was called in and he was able to place a Hall with minimal urine output. In retrospect what the nurses were seeing was the ascites in this gentleman's belly not full bladder. Medications are Tylenol, Tums, subcu heparin for DVT prophylaxis, lactated Ringer's, intermittent morphine, as needed Zofran, as needed Roxicodone. P.o. Protonix. Compazine as needed and Phenergan as needed since Zofran was not always successful. Temperature is 37.7, heart rate 96. Blood pressure 143/83. Respirations 20 and he is 94% on room air. 6 foot 5 inch, 126 kg black male. Looks fatigued, but alert, oriented. Neck is supple Lungs are clear to auscultation and percussion without increased respiratory effort Regular rate and rhythm Abdomen is distended, and slightly tympanic. Pain is 7 out of a 10 in all quadrants. Intermittent bowel cramps that are very uncomfortable. Hypoactive bowel sounds. Hall in place. Extremities without edema. Neurologically he is alert, oriented to person place and time. BUN 64>> 69>> 68>> 73 today Creatinine 3.7>> 4.1>> 3.8>> 3.3 today Hemoglobin on admission is 16.3. He is 14.2 now White cell count was 12.6 on admission and has continued to climb slightly and he is 17.6 today. Differential shows 2.5% monocytes. Assessment/plan 1. Generalized abdominal pain for a week. 2. Hematemesis with only a mild drop in hemoglobin. Not anemic yet. 3. Moderate dyspepsia with nausea and vomiting 4. Gastric neoplasm uncertain behavior 5. Metastatic disease of uncertain primary as of yet 6. Benign prostatic hypertrophy with lower urinary tract symptoms of obstruction 7. Ascites 8. History of lymphoma 9. Hypertension 10. Acute on chronic kidney injury stage III His abdominal pain nausea and vomiting continue in spite of Zofran, Phenergan, Compazine. He is also on Tums and Protonix. I suspect that most of the symptoms is from the gastric mass that is either gastric or pancreatic. We will continue with symptom management. General surgery is to do EGD and colonoscopy today. Hall is now in place for urinary retention and will continue during his stay. Blood pressure varies between 133 systolic to 151 systolic. At this time I will not change those medications. He will be continued on IV fluids, antiemetics. I will change Protonix to IV since he is not tolerating p.o.
[2020-07-13] MEDS: HEPARIN 5,000 UNIT/ML VIAL SUBQ SCH (09:09)
[2020-07-13] MEDS: CALCIUM CARBONATE CHEW 500 MG TABLET PO SCH ×3 (09:11→17:09)
--- NOTE | 2020-07-13 09:12 | ANESTHESIA ---
Pre-Anesthesia VS, & Labs - Diagnosis GI bleed, abdominal pain - Procedure EGD, Colonoscopy Vital Signs: Temp Pulse Resp BP Pulse Ox 37.7 C 96 20 143/83 H 94 07/13/20 07:50 07/13/20 07:50 07/13/20 07:50 07/13/20 07:50 07/13/20 07:50 Height: 6 ft 5 in Weight (kg): 126 kg Body Mass Index: 32.9 BMI Classification: Obese - NPO >8 hours - Lab Results Current Lab Results: Laboratory Tests 07/13/20 05:05: Sodium 139, Potassium 3.5, Chloride 101, Carbon Dioxide 23, Anion Gap 15.0 H, BUN 73 H, Creatinine 3.3 H, Estimated GFR (MDRD) 23 L, Glucose 139 H, Calcium 8.3 L, Magnesium 1.9 07/13/20 05:05: WBC 17.6 H, RBC 4.81, Hgb 14.2, Hct 41.8 L, MCV 86.9, MCH 29.5, MCHC 34.0, RDW 13.2, Plt Count 287, MPV 10.3, Neut # (Auto) Not Reportable, Lymph # (Auto) Not Reportable, [place] # (Auto) Not Reportable, Eos # (Auto) Not Reportable, Baso # (Auto) Not Reportable, Absolute Nucleated RBC Not Reportable, Total Counted 100, Band Neuts % (Manual) 0, Abnorm Lymph % (Manual) 0, Nucleated RBC % Not Reportable, Neutrophils # (Manual) 13.4 H, Lymphocytes # (Manual) 1.8, Monocytes # (Manual) 2.5 H, Eosinophils # (Manual) 0.0, Basophils # (Manual) 0.0, Differential Comment MANUAL DIFFERENTIAL, WBC Morphology NORMAL APPEARANCE, Platelet Estimate NORMAL (130-450,000), Platelet Morphology NORMAL APPEARANCE, RBC Morph Micro Appear NORMAL APPEARANCE 07/12/20 23:50: WBC 16.0 H, RBC 4.99, Hgb 14.4, Hct 43.3, MCV 86.8, MCH 28.9, MCHC 33.3, RDW 13.3, Plt Count 343, MPV 10.5 07/12/20 17:39: WBC 15.4 H, RBC 4.92, Hgb 14.5, Hct 43.5, MCV 88.4, MCH 29.5, MCHC 33.3, RDW 13.2, Plt Count 323, MPV 10.3 07/12/20 12:23: WBC 13.9 H, RBC 5.09, Hgb 14.9, Hct 45.2, MCV 88.8, MCH 29.3, MCHC 33.0, RDW 13.2, Plt Count 351, MPV 10.4 07/12/20 11:51: Phosphorus 4.7 H 07/12/20 11:51: Sodium 137, Potassium 4.0, Chloride 99 L, Carbon Dioxide 27, Anion Gap 11.0, BUN 68 H, Creatinine 3.8 H, Estimated GFR (MDRD) 19 L, Glucose 149 H, Calcium 8.5 07/12/20 04:45: Sodium 138, Potassium 4.6, Chloride 100 L, Carbon Dioxide 26, Anion Gap 12.0, BUN 69 H, Creatinine 4.1 H, Estimated GFR (MDRD) 18 L, Glucose 124 H, Calcium 8.7, Magnesium 2.2 07/12/20 04:45: WBC 13.1 H, RBC 5.24, Hgb 15.3, Hct 46.4, MCV 88.5, MCH 29.2, MCHC 33.0, RDW 13.2, Plt Count 337, MPV 10.6, Neut # (Auto) 10.8 H, Lymph # (Auto) 1.1 L, [place] # (Auto) 1.1 H, Eos # (Auto) 0.0, Baso # (Auto) 0.1, Absolute Nucleated RBC 0.00, Nucleated RBC % 0.0 07/11/20 16:51: Sodium 134 L, Potassium 4.0, Chloride 98 L, Carbon Dioxide 22, Anion Gap 14.0 H, BUN 64 H, Creatinine 3.7 H, Estimated GFR (MDRD) 20 L, Glucose 130 H, Calcium 9.0, Total Bilirubin 1.1 H, AST 13, ALT 11, Alkaline Phosphatase 48, Total Protein 7.4, Albumin 3.4, Globulin 4.0, Albumin/Globulin Ratio 0.9 L, Lipase 19 L 07/11/20 16:51: WBC 12.6 H, RBC 5.59, Hgb 16.3, Hct 48.0, MCV 85.9, MCH 29.2, MCHC 34.0, RDW 13.0, Plt Count 358, MPV 10.2, Neut # (Auto) 10.2 H, Lymph # (Auto) 1.2 L, [place] # (Auto) 1.0, Eos # (Auto) 0.1, Baso # (Auto) 0.1, Absolute Nucleated RBC 0.00, Nucleated RBC % 0.0 Lab results reviewed: Yes Fish Bones: 07/13/20 05:05 07/13/20 05:05 Home Medications and Allergies Home Medications: Ambulatory Orders Atenolol [Tenormin] 50 mg PO DAILY 07/12/20 Famotidine [Pepcid AC] 10 mg PO DAILY 07/12/20 Active Medications Acetaminophen (Acetaminophen 325 Mg Tablet) 650 mg PO Q4HR PRN PRN Reason: Pain 1 to 4 Calcium Carbonate/Glycine (Calcium Carbonate Chew 500 Mg Tablet) 500 mg PO QID [facility] Last Admin: 07/12/20 20:58 Dose: 500 mg Documented by: Heparin Sodium (Porcine) (Heparin 5,000 Unit/Ml Vial) 5,000 unit SUBQ BID [facility] Last Admin: 07/12/20 20:56 Dose: 5,000 unit Documented by: Lactated Ringer's (Lr) 1,000 mls @ 150 mls/hr IV .Q6H40M [facility] Last Infusion: 07/13/20 06:13 Dose: 150 mls/hr Documented by: Promethazine HCl 25 mg/ Sodium (Chloride) 51 mls @ 100 mls/hr IV Q6H PRN PRN Reason: Nausea / Vomiting Last Infusion: 07/12/20 16:00 Dose: Infused Documented by: Morphine Sulfate (Morphine 2 Mg/Ml Carpuject) 2 mg IVP Q2HR PRN PRN Reason: Pain 8 to 10 Ondansetron HCl (Ondansetron 4 Mg/2 Ml Vial) 4 mg IVP Q4HR PRN PRN Reason: Nausea / Vomiting Last Admin: 07/13/20 07:58 Dose: 4 mg Documented by: Oxycodone HCl (Oxycodone 5 Mg Tablet) 5 mg PO Q4HR PRN PRN Reason: Pain 5 to 7 Last Admin: 07/13/20 01:13 Dose: 5 mg Documented by: Pantoprazole Sodium (Pantoprazole 40 Mg Tablet) 40 mg PO QDAC [facility] Last Admin: 07/13/20 06:14 Dose: 40 mg Documented by: Prochlorperazine Edisylate (Prochlorperazine 10 Mg/2 Ml Vial) 10 mg IVP Q6HR PRN PRN Reason: Nausea / Vomiting Last Admin: 07/12/20 12:00 Dose: 10 mg Documented by: Sodium Chloride (Sodium Chloride Flush 0.9% 10 Ml Syringe) 10 ml IVP PRN PRN PRN Reason: NEEDED PER PROVIDER ORDERS Sodium Chloride (Sodium Chloride Flush 0.9% 10 Ml Syringe) 10 ml IVP 0100,0900,1700 [facility] Last Admin: 07/13/20 02:23 Dose: Not Given Documented by: Triamterene/Hydrochlorothiazid [Triamterene-Hctz 37.5-25 mg Cp] 1 cap PO DAILY 05/02/18 Atenolol [Tenormin] 50 mg PO DAILY 07/12/20 Famotidine [Pepcid AC] 10 mg PO DAILY 07/12/20 Allergies/Adverse Reactions: Allergies Allergy/AdvReac Type Severity Reaction Status Date / Time No Known Drug Allergies Allergy Verified 07/11/20 16:23 Anes History & Medical History - Anesthetic History Anesthesia Complications: reports: No previous complications Family history of Anesthesia Complications: Denies Family history of Malignant Hyperthermia: Denies - Medical History Cardiovascular: reports: Hypertension Gastrointestinal: reports: GERD Smoking Status: Never smoker - Surgical History Orthopedic: reports: Arthroscopic surgery Exam General: Alert, Oriented x3, Cooperative, No acute distress Dental: Loose/Frag Mouth Openin Fingerbreadth Neck Mobility: Reduced Mallampati classification: II Respiratory: Lungs clear, Normal breath sounds, No respiratory distress, No accessory muscle use Cardiovascular: Regular rate, Normal S1, Normal S2, No murmurs Plan Anesthesia Type: General, Total IV Consent for Procedure(s) Verified and Reviewed: Yes Code Status: Attempt Resuscitation ASA classification: 3-Severe systemic disease Is this case an emergency?: No
[2020-07-13] MEDS ORDERED: PROPOFOL 1000 MG/100 ML 1,000 MG/100 ML BOTTLE IV ONE (09:51)
[2020-07-13] MEDS ORDERED: LIDOCAINE-MPF 2% 5 ML VIAL ONE ×2 (09:51→11:08)
--- NOTE | 2020-07-13 11:08 | SURGERY HX AND PHYSICAL(T) ---
Surgical History & Physical - Chief Complaint/HPI Chief Complaint: Gastrointestinal bleed/hematochezia History of Present Illness: 70-year-old male presenting for abdominal distention, nausea and hematemesis, change in bowel function. Consults specifically called for abnormal imaging and hematemesis. Patient uncertain for duration of symptoms. No significant family history. Notable past surgical history to include no prior abdominal surgical history. Patient is retired . Patient reports ongoing chronic change in bowel function, positive bleeding per rectum, and also significant reflux, hematemesis, early satiety and abdominal bloating associated symptoms. Patient does not use tobacco. Patient has a history of alcohol use but denies any associated abuse. No history of heart attack or stroke. Patient takes no systemic anticoagulation. Endoscopic history includes none prior. - PMH/PSH/Social Hx Does the pt have a hx of MRSA?: No Cardiovascular: Hypertension Gastrointestinal: GERD Orthopedic: Arthroscopic surgery Smoking Status: Never smoker Does the pt drink ETOH?: No Does the pt have substance abuse?: No - Home Meds and Allergies Home Medications: Triamterene/Hydrochlorothiazid [Triamterene-Hctz 37.5-25 mg Cp] 1 cap PO DAILY 05/02/18 Atenolol [Tenormin] 50 mg PO DAILY 07/12/20 Famotidine [Pepcid AC] 10 mg PO DAILY 07/12/20 Allergies/Adverse Reactions: Allergies Allergy/AdvReac Type Severity Reaction Status Date / Time No Known Drug Allergies Allergy Verified 07/11/20 16:23 - Review of Systems Constitutional: Malaise Gastrointestinal: Nausea, Vomiting, Difficulty swallowing, Abdominal pain, Melena, Hematochechezia, Other (Hematemesis) Gentinourinary: Dysuria, Retention Hematologic: Anemia - Vital Signs Heart Rate: 76 Blood Pressure: 136/80 Temperature: 37.7 C Respiratory Rate: 20 O2 Saturation: 94 Weight (kg): 126 kg Height: 1.96 m - Physical Exam Comments/Other: General Appearance: positive: No acute distress Eyes Bilateral: positive: Normal inspection ENT: positive: ENT inspection nml Neck: positive: Nml inspection Respiratory: positive: Chest non-tender, No respiratory distress, Breath sounds nml. negative: Wheezes, Rales, Rhonchi Cardiovascular: positive: Regular rate & rhythm Extremities: positive: Non-tender, Full ROM, Nml appearance Neurologic/Psychiatric: positive: Oriented x3, CN's nml (2-12) Abdomen specified: Large obese. Grossly distended. No rebound no guarding. Tympanic. No appreciable fluid wave. Genitourinary: Patient was noted for urinary retention per the hospitalist service. Attempted coud catheter placement by multiple nursing provider. I was able to insert a 16 [place] coud catheter atraumatically without any blood and return of urine. This was performed sterilely with Urojet and without any complication. - Patient Review Patient Review: Problems were reviewed with the patient during this visit. Medications were reviewed with the patient during this visit. Allergies were reviewed this patient during this visit. Pertinent Tests Reviewed: All pertitent test for this patient were reviewed. 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 Obstructing with associated partial small bowel obstruction from colonic compression, gastric outlet obstruction from primary duodenal compression, and diffuse metastatic lymphadenopathy by imaging. Patient with also hematemesis. It is uncertain to what degree this patient will be able to benefit from any definitive intervention. However palliative measures and tissue pathologic diagnosis are indicated. 1. Care per hospitalist service 2. Trend H&H and transfuse appropriately given the patient's history of cardiac disease 3. Telemetry and close hemodynamic monitoring 4. Plan upper endoscopy to evaluate source, which is most likely given the patient's imaging. Will proceed with colonoscopy as well. 5. Proceed with colonic cleanse/prep. 6. As is always the case, diagnostic endoscopy with potential for therapeutic interventions. Given limitations, surgical interventions and/or transfer for advanced gastrointestinal interventions and/or interventional radiographic interventions remain part of this complex algorithm. 7. PPI infusion and consider Carafate pending results 8. Coud catheter placed by me its at bedside for urinary retention, [address] abdomen pelvis July 11 impression: 1. Large soft tissue density involving the distal stomach pancreatic head and transverse colon highly suspicious for primary malignancy which could be arising from the stomach colon or pancreas. 2. Hepatic metastasis/metastatic disease. 3. Mesenteric and retroperitoneal metastatic lymphadenopathy. Metastatic lymphadenopathy also routed noted in the visualized pericardial flap. 4. Moderate amount of ascites. No free intraperitoneal air. 5. No dilated loops of bowel.
--- NOTE | 2020-07-13 12:12 | PROVIDER PROGRESS NOTE ---
Progress Note 70-year-old male with gastric outlet obstruction and partial small bowel obstruction likely secondary to large foregut mass either gastric or pancreatic in origin. Hematemesis, melena, associated anemia. Ascites and diffuse abdominal lymphadenopathy. Recommended for upper and lower endoscopy. Urinary obstruction/obstructive uropathy addressed by daily catheter yesterday. Imaging findings per below. CT abdomen pelvis July 11 impression: 1. Large soft tissue density involving the distal stomach pancreatic head and transverse colon highly suspicious for primary malignancy which could be arising from the stomach colon or pancreas. 2. Hepatic metastasis/metastatic disease. 3. Mesenteric and retroperitoneal metastatic lymphadenopathy. Metastatic lymphadenopathy also routed noted in the visualized pericardial flap. 4. Moderate amount of ascites. No free intraperitoneal air. 5. No dilated loops of bowel. Colonoscopy findings as per below: 1. Exceedingly poor prep with retained stool. Tortuous colon with colonic narrowing. 2. Ileocecal valve achieved as evidenced by the appendiceal orifice and ICV; both photographed. 3. Narrowing noted either at the ascending colon or transverse colon which together with tortuosity and poor prep made achieving cecum exceedingly challenging. Counterpressure, stiffening wire, and postural change necessary. 4. Cecum without cecitis. The entirety of the colon was without colitis save one area within the ascending versus transverse colon which was either notable for external compression and/or focal colitis which was biopsied per below, cold,. Positive diverticulosis. 5. Careful slow withdrawal notable for multiple pathologies/polyps per below: A. Ascending colonic narrowing possible transverse colon however difficult to ascertain performed for multiple random cold forcep biopsies. Complete. Retrieved. Hemostatic. B. Transverse colonic/hepatic flexure polyp. Hot snare polypectomy. Complete. Retrieved. C. Splenic flexure pedunculated large polyp. Hot snare polypectomy. Complete. Retrieved. D. Proximal rectal large pedunculated polyp. Hot snare polypectomy. Complete. Retrieved. 6. Tortuous colon. 7. Rectum without proctitis. Single proximal polyp as noted above. 8. Nonbleeding internal hemorrhoids nonbleeding. EGD discussion of findings: 1. Duodenum noted for large ulcerated circumferential narrowed area going from D1-D2. Likely pancreatic primary with external compression however will await final tissue pathology. Multiple biopsies obtained. 2. Antrum without any antritis. Patent pylorus. 3. Retroflexion with no significant hiatal herniation. 4. No diffuse gastritis or gastropathy. No polyps. No ulcerations. 5. Secondary to the patient's outlet obstruction from this duodenal stenosis, placed Dobbhoff tube from the 1 nares and passed this through the area of obstruction using a snare which was employed to grasp the Dobbhoff and passed beyond the area of obstruction. 6. In the contralateral nares a [place] sump large bore nasogastric tube was placed within the stomach for decompression 7. Esophagus was normal except for significant reflux and concern for aspiration. 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 There is no evidence of hepatobiliary obstruction at this time. There is also local extension into the likely transverse colon in the area of stenosis was most likely transverse colonic on endoscopy versus ascending colonic. Biopsied regardless. Patient will need to await pathology however the extent of disease likely make the patient poor candidate for any definitive therapy and palliative measures would be most indicated at this time. We will need to obtain plain film radiography to confirm placement of the decompressive nasogastric tube and the feeding Dobbhoff postpyloric/post obstruction tube. Plan as follows: 1. Continue n.p.o., nasogastric to low continuous suction, may begin tube feeds upon confirmation of Dobbhoff tube placement. For the long-term if the patient is not deemed a candidate for any additional intervention, we can consider placement of a gastrojejunostomy tube for feeding postpyloric for the jejunal extension and gastric decompression. Patient would likely require a diverting colostomy simultaneous to address bowel obstruction. 2. Await pathology. For gastrointestinal bleed, continue transfusion as necessary, continue PPI, however hematemesis is bleeding likely from duodenal mass unknown primary however likely pancreatic. 3. Nutrition consultation for postpyloric feeds.
[2020-07-13] MEDS: PROCHLORPERAZINE 10 MG/2 ML VIAL IVP PRN (13:19)
--- NOTE | 2020-07-13 14:20 | ANESTHESIA POST OP EVALUATION ---
Anesthesia Post Eval - Post Anesthesia Eval Vitals: Last Vital Signs Temp 36.8 C 07/13/20 13:15 Pulse 92 07/13/20 14:00 Resp 22 07/13/20 14:00 BP 139/68 H 07/13/20 14:00 Pulse Ox 94 07/13/20 14:00 CV Function Including HR & BP: Stable Pain Control: Satisfactory Nausea & Vomiting: Negative Mental Status: Baseline Respiratory Status: Airway Patent Hydration Status: Satisfactory Anesthesia Complications: None
--- NOTE | 2020-07-13 16:38 | XRAY Report ---
PROCEDURE: Chest for Line Placement INDICATIONS: Check NGT placement TECHNIQUE: One view of the chest was acquired. COMPARISON: 07/02/2014. Correlation is also made with abdomen pelvis CT 07/11/2020. FINDINGS: Surgical changes and devices: The gastric tube has been placed. The tip is seen overlying the mid sto mach. Lungs and pleura: Low lung volumes can be seen, causing a crowded appearance to the lung markings. M ild interstitial prominence can be seen. No definite pneumothorax or pleural effusion can be seen. Mediastinum: Mediastinal contours appear normal. Heart size is normal. Bones and chest wall: No suspicious bony lesions. Overlying soft tissues appear unremarkable. IMPRESSION: The tip of the gastric tube is seen overlying the mid stomach. Interstitial prominence is seen, which is nonspecific. Differential diagnosis includes pulmonary tomás a and artifact. Reviewed by: Perfecto Phipps MD on 07/13/2020 3:36 PM ERIC Approved by: Perfecto Phipps MD on 07/13/2020 3:36 PM [place] Station ID: [id number]
[2020-07-13 19:06] VITALS: BP 140/77
--- NOTE | 2020-07-13 19:42 | DISCHARGE SUMMARY ---
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 Metastatic disease - ongoing. Acute kidney injury - ongoing. Ascites - stable. History of lymphoma - resolved. Hypertension - stable. - HPI History of Present Illness: This is a 70-year-old male with a past medical history significant for hypertension, GERD, and history of lymphoma in remission since 1996 who presents today complaining of nausea/vomiting along with abdominal pain. He states his symptoms began about 4 to 5 days ago and have progressed on a daily basis. He has been unable to keep anything down during this time. He was able to only keep down a little bit of water here and there but for the most part he will vomit after having any oral intake. He denies any hematemesis. He does complain of heartburn and he is on Prilosec at home. He also has associated epigastric abdominal pain and has also had the hiccups which are becoming more prominent over the past few days. He also feels like his abdomen is more distended. He also feels constipated and his last bowel movement was nearly 1 week ago. He is passing gas. He reports no fevers, chills. He has never had a colonoscopy or endoscopy. He has done FOBT for colon cancer screening. He does report a history of lymphoma which was treated in 1996 at [facility]. He no longer sees oncology. In the emergency department, he was found to have acute kidney injury with a creatinine of 3.7 and a BUN of 64. A CT of the abdomen pelvis without contrast revealed an abdominal mass which may be of distal gastric origin versus pancreas versus colon as well as evidence of metastatic disease and ascites. He was given Zofran and IV fluids in the emergency department. Given the above findings, medicine was consulted for admission. I did discuss goals of care with the patient and he would like to be a full code. - CONSULTS | PROCEDURES Consultations: General Surgery Procedures: Colonoscopy on 07/13 revealed: 1. Exceedingly poor prep with retained stool. Tortuous colon with colonic narrowing. 2. Ileocecal valve achieved as evidenced by the appendiceal orifice and ICV; both photographed. 3. Narrowing noted either at the ascending colon or transverse colon which t ogether with tortuosity and poor prep made achieving cecum exceedingly challenging. Counterpressure, stiffening wire, and postural change necessary. 4. Cecum without cecitis. The entirety of the colon was without colitis save one area within the ascending versus transverse colon which was either notable for external compression and/or focal colitis which was biopsied per below, cold,. Positive diverticulosis. 5. Careful slow withdrawal notable for multiple pathologies/polyps per below: A. Ascending colonic narrowing possible transverse colon however difficult to ascertain performed for multiple random cold forcep biopsies. Complete. Retrieved. Hemostatic. B. Transverse colonic/hepatic flexure polyp. Hot snare polypectomy. Complete. Retrieved. C. Splenic flexure pedunculated large polyp. Hot snare polypectomy. Complete. Retrieved. D. Proximal rectal large pedunculated polyp. Hot snare polypectomy. Complete. Retrieved. 6. Tortuous colon. 7. Rectum without proctitis. Single proximal polyp as noted above. 8. Nonbleeding internal hemorrhoids nonbleeding. EGD on 07/13 revealed: 1. Duodenum noted for large ulcerated circumferential narrowed area going from D1-D2. Likely pancreatic primary with external compression however will await final tissue pathology. Multiple biopsies obtained. 2. Antrum without any antritis. Patent pylorus. 3. Retroflexion with no significant hiatal herniation. 4. No diffuse gastritis or gastropathy. No polyps. No ulcerations. 5. Secondary to the patient's outlet obstruction from this duodenal stenosis, placed Dobbhoff tube from the 1 nares and passed this through the area of obstruction using a snare which was employed to grasp the Dobbhoff and passed beyond the area of obstruction. 6. In the contralateral nares a Ava sump large bore nasogastric tube was placed within the stomach for decompression 7. Esophagus was normal except for significant reflux and concern for aspiration. - HOSPITAL COURSE Hospital Course: He was admitted to the floor for acute renal failure which was felt to be prerenal injury due to poor oral intake from ongoing nausea and vomiting. He had a CT of the abdomen pelvis without contrast which was concerning for gastric or pancreatic/colonic mass and it was felt that this was likely causing some degree of obstruction and his ongoing nausea/vomiting. He was treated with IV lactated Ringer's and although the following day, his creatinine had increased it then began to improve on a daily basis and is now down to 3.3 from 3.7 on admission. His BUN has slowly increased and today it is 73 from 64 on admission. Given the concern for a gastric mass, general surgery was consulted and they recommended endoscopy and colonoscopy. This was performed today with the results as mentioned above under procedures. Ultimately, it was felt that he likely had a pancreatic mass that was eroding into his duodenum and causing external compression. An NG tube was placed for decompression. It was also noted that he had decreased urine output and a bladder scan was obtained which was greater than 1 L. A Hall catheter was ultimately placed but the urine output was quite minimal. In hindsight, this was likely the ascites that was being detected by the bladder scan. A Hall catheter has remained in place nonetheless to monitor his urine output. He remains on IV hydration with lactated Ringer's. Given in the endoscopy findings and his ongoing nausea/vomiting, it was felt that transfer to higher level of care is warranted for potential surgery/gastroenterology intervention. This was discussed with his who agreed with the plan and at this time, the patient remains a full code. It was discussed with his regarding his likely poor prognosis given there is evidence of metastatic disease on his CT with liver metastasis and lym phadenopathy. At this time, the patient and his would like everything done. This was discussed with Dr. Migdalia Shah of the [facility] who graciously accepted the patient in transfer. He was discharged in stable condition. - ALLERGIES Allergies/Adverse Reactions: Allergies Allergy/AdvReac Type Severity Reaction Status Date / Time No Known Drug Allergies Allergy Verified 07/11/20 16:23 - MEDICATIONS Home Medications: Ambulatory Orders Medication Instructions Recorded Confirmed Triamterene/Hydrochlorothiazid 1 cap PO DAILY 05/02/18 07/12/20 [Triamterene-Hctz 37.5-25 mg Cp] Atenolol [Tenormin] 50 mg PO DAILY 07/12/20 07/12/20 Famotidine [Pepcid AC] 10 mg PO DAILY 07/12/20 07/12/20 - PHYSICAL EXAM AT DISCHARGE General Appearance: positive: No acute distress, Lethargic Eyes Bilateral: positive: Normal inspection, Conjunctivae nml ENT: positive: ENT inspection nml, Other (NG tube in place.) Neck: positive: Nml inspection Respiratory: positive: No respiratory distress. negative: Wheezes, Rales Cardiovascular: positive: Regular rate & rhythm, No murmur. negative: Tachycardia, Systolic murmur Abdomen: positive: Tenderness (Epigastric tenderness.). negative: No distention (Distended abdomen.), Guarding, Rebound Skin: positive: Warm, Dry Extremities: positive: No pedal edema Neurologic/Psychiatric: positive: Motor nml. negative: Disoriented to person, Disoriented to place Physical Exam Other/Comments: Vital Signs - 24 hr 07/12/20 07/13/20 07/13/20 23:10 01:25 07:50 Temperature 37.8 C 37.7 C Heart Rate Heart Rate [ 109 H 101 H 96 Brachial] Respiratory 20 20 Rate Blood Pressure Blood Pressure 143/83 H [Left Brachial artery] Blood Pressure 130/85 H 143/84 H [Right Brachial artery] O2 Saturation 94 94 07/13/20 07/13/20 07/13/20 12:22 12:31 12:45 Temperature 37.7 C 36.5 C Heart Rate 76 Heart Rate [ 91 91 Brachial] Respiratory 20 18 20 Rate Blood Pressure 136/80 H Blood Pressure 120/68 [Left Brachial artery] Blood Pressure 126/71 [Right Brachial artery] O2 Saturation 94 92 98 07/13/20 07/13/20 07/13/20 13:00 13:15 13:30 Temperature 36.8 C Heart Rate Heart Rate [ 92 90 90 Brachial] Respiratory 20 24 22 Rate Blood Pressure Blood Pressure 125/69 133/65 H 141/70 H [Left Brachial artery] Blood Pressure [Right Brachial artery] O2 Saturation 100 98 99 07/13/20 07/13/20 07/13/20 14:00 15:30 16:00 Temperature 37.1 C Heart Rate Heart Rate [ 92 98 97 Brachial] Respiratory 22 22 16 Rate Blood Pressure Blood Pressure 139/68 H 122/71 119/70 [Left Brachial artery] Blood Pressure [Right Brachial artery] O2 Saturation 94 95 96 07/13/20 19:04 Temperature 37.1 C Heart Rate Heart Rate [ 103 H Brachial] Respiratory 24 Rate Blood Pressure Blood Pressure 140/77 H [Left Brachial artery] Blood Pressure [Right Brachial artery] O2 Saturation 95 Oxygen O2 Source Room air - LABS Result Diagrams: 07/13/20 05:05 07/13/20 05:05 Other Lab Results: Laboratory Tests 07/11/20 07/11/20 07/11/20 16:51 16:51 19:42 WBC 12.6 H RBC 5.59 Hgb 16.3 Hct 48.0 MCV 85.9 MCH 29.2 MCHC 34.0 RDW 13.0 Plt Count 358 MPV 10.2 Neut # (Auto) 10.2 H Lymph # (Auto) 1.2 L Haines # (Auto) 1.0 Eos # (Auto) 0.1 Baso # (Auto) 0.1 Absolute Nucleated RBC 0.00 Total Counted Band Neuts % (Manual) Abnorm Lymph % (Manual) Nucleated RBC % 0.0 Neutrophils # (Manual) Lymphocytes # (Manual) Monocytes # (Manual) Eosinophils # (Manual) Basophils # (Manual) Differential Comment WBC Morphology Platelet Estimate Platelet Morphology RBC Morph Micro Appear Sodium 134 L Potassium 4.0 Chloride 98 L Carbon Dioxide 22 Anion Gap 14.0 H BUN 64 H Creatinine 3.7 H Estimated GFR (MDRD) 20 L Glucose 130 H POC Whole Bld Glucose Calcium 9.0 Phosphorus Magnesium Total Bilirubin 1.1 H AST 13 ALT 11 Alkaline Phosphatase 48 Total Protein 7.4 Albumin 3.4 Globulin 4.0 Albumin/Globulin Ratio 0.9 L Lipase 19 L Urine Color Urine Clarity Urine pH Ur Specific [place] Urine Protein Urine Glucose (UA) Urine Ketones Urine Occult Blood Urine Nitrite Urine Bilirubin Urine Urobilinogen Ur Leukocyte Esterase Ur Microscopic Review Urine Culture Comments Urine Sodium Nasal Adenovirus (PCR) NOT DETECTED Nasal B. parapertussis DNA (PCR) NOT DETECTED Nasal Coronavir 229E PCR NOT DETECTED Nasal Coronavir HKU1 PCR NOT DETECTED Nasal Coronavir NL63 PCR NOT DETECTED Nasal Coronavir OC43 PCR NOT DETECTED Nasal Enterovir/Rhinovir PCR NOT DETECTED Nasal Influenza B PCR NOT DETECTED Nasal Influenza A PCR NOT DETECTED Nasal Parainfluen 1 PCR NOT DETECTED Nasal Parainfluen 2 PCR NOT DETECTED Nasal Parainfluen 3 PCR NOT DETECTED Nasal Parainfluen 4 PCR NOT DETECTED Nasal RSV (PCR) NOT DETECTED Nasal B.pertussis DNA PCR NOT DETECTED Nasal C.pneumoniae (PCR) NOT DETECTED [place] Human Metapneumo PCR NOT DETECTED Nasal M.pneumoniae (PCR) NOT DETECTED Nasal SARS-CoV-2 (PCR) NOT DETECTED 07/12/20 07/12/20 07/12/20 04:45 04:45 04:55 WBC 13.1 H RBC 5.24 Hgb 15.3 Hct 46.4 MCV 88.5 MCH 29.2 MCHC 33.0 RDW 13.2 Plt Count 337 MPV 10.6 Neut # (Auto) 10.8 H Lymph # (Auto) 1.1 L Haines # (Auto) 1.1 H Eos # (Auto) 0.0 Baso # (Auto) 0.1 Absolute Nucleated RBC 0.00 Total Counted Band Neuts % (Manual) Abnorm Lymph % (Manual) Nucleated RBC % 0.0 Neutrophils # (Manual) Lymphocytes # (Manual) Monocytes # (Manual) Eosinophils # (Manual) Basophils # (Manual) Differential Comment WBC Morphology Platelet Estimate Platelet Morphology RBC Morph Micro Appear Sodium 138 Potassium 4.6 Chloride 100 L Carbon Dioxide 26 Anion Gap 12.0 BUN 69 H Creatinine 4.1 H Estimated GFR (MDRD) 18 L Glucose 124 H POC Whole Bld Glucose Calcium 8.7 Phosphorus Magnesium 2.2 Total Bilirubin AST ALT Alkaline Phosphatase Total Protein Albumin Globulin Albumin/Globulin Ratio Lipase Urine Color YELLOW Urine Clarity CLEAR Urine pH 5.0 Ur Specific [place] 1.025 Urine Protein NEGATIVE Urine Glucose (UA) NEGATIVE Urine Ketones 15 H Urine Occult Blood NEGATIVE Urine Nitrite NEGATIVE Urine Bilirubin NEGATIVE Urine Urobilinogen 0.2 (NORMAL) Ur Leukocyte Esterase NEGATIVE Ur Microscopic Review NOT INDICATED Urine Culture Comments NOT INDICATED Urine Sodium Nasal Adenovirus (PCR) Nasal B. parapertussis DNA (PCR) Nasal Coronavir 229E PCR Nasal Coronavir HKU1 PCR Nasal Coronavir NL63 PCR Nasal Coronavir OC43 PCR Nasal Enterovir/Rhinovir PCR Nasal Influenza B PCR Nasal Influenza A PCR Nasal Parainfluen 1 PCR Nasal Parainfluen 2 PCR Nasal Parainfluen 3 PCR Nasal Parainfluen 4 PCR Nasal RSV (PCR) Nasal B.pertussis DNA PCR Nasal C.pneumoniae (PCR) [place] Human Metapneumo PCR Nasal M.pneumoniae (PCR) Nasal SARS-CoV-2 (PCR) 07/12/20 07/12/20 07/12/20 11:51 11:51 12:20 WBC RBC Hgb Hct MCV MCH MCHC RDW Plt Count MPV Neut # (Auto) Lymph # (Auto) Haines # (Auto) Eos # (Auto) Baso # (Auto) Absolute Nucleated RBC Total Counted Band Neuts % (Manual) Abnorm Lymph % (Manual) Nucleated RBC % Neutrophils # (Manual) Lymphocytes # (Manual) Monocytes # (Manual) Eosinophils # (Manual) Basophils # (Manual) Differential Comment WBC Morphology Platelet Estimate Platelet Morphology RBC Morph Micro Appear Sodium 137 Potassium 4.0 Chloride 99 L Carbon Dioxide 27 Anion Gap 11.0 BUN 68 H Creatinine 3.8 H Estimated GFR (MDRD) 19 L Glucose 149 H POC Whole Bld Glucose Calcium 8.5 Phosphorus 4.7 H Magnesium Total Bilirubin AST ALT Alkaline Phosphatase Total Protein Albumin Globulin Albumin/Globulin Ratio Lipase Urine Color Urine Clarity Urine pH Ur Specific [place] Urine Protein Urine Glucose (UA) Urine Ketones Urine Occult Blood Urine Nitrite Urine Bilirubin Urine Urobilinogen Ur Leukocyte Esterase Ur Microscopic Review Urine Culture Comments Urine Sodium < 12.0 Nasal Adenovirus (PCR) Nasal B. parapertussis DNA (PCR) Nasal Coronavir 229E PCR Nasal Coronavir HKU1 PCR Nasal Coronavir NL63 PCR Nasal Coronavir OC43 PCR Nasal Enterovir/Rhinovir PCR Nasal Influenza B PCR Nasal Influenza A PCR Nasal Parainfluen 1 PCR Nasal Parainfluen 2 PCR Nasal Parainfluen 3 PCR Nasal Parainfluen 4 PCR Nasal RSV (PCR) Nasal B.pertussis DNA PCR Nasal C.pneumoniae (PCR) [place] Human Metapneumo PCR Nasal M.pneumoniae (PCR) Nasal SARS-CoV-2 (PCR) 07/12/20 07/12/20 07/12/20 12:23 17:39 23:50 WBC 13.9 H 15.4 H 16.0 H RBC 5.09 4.92 4.99 Hgb 14.9 14.5 14.4 Hct 45.2 43.5 43.3 MCV 88.8 88.4 86.8 MCH 29.3 29.5 28.9 MCHC 33.0 33.3 33.3 RDW 13.2 13.2 13.3 Plt Count 351 323 343 MPV 10.4 10.3 10.5 Neut # (Auto) Lymph # (Auto) Haines # (Auto) Eos # (Auto) Baso # (Auto) Absolute Nucleated RBC Total Counted Band Neuts % (Manual) Abnorm Lymph % (Manual) Nucleated RBC % Neutrophils # (Manual) Lymphocytes # (Manual) Monocytes # (Manual) Eosinophils # (Manual) Basophils # (Manual) Differential Comment WBC Morphology Platelet Estimate Platelet Morphology RBC Morph Micro Appear Sodium Potassium Chloride Carbon Dioxide Anion Gap BUN Creatinine Estimated GFR (MDRD) Glucose POC Whole Bld Glucose Calcium Phosphorus Magnesium Total Bilirubin AST ALT Alkaline Phosphatase Total Protein Albumin Globulin Albumin/Globulin Ratio Lipase Urine Color Urine Clarity Urine pH Ur Specific [place] Urine Protein Urine Glucose (UA) Urine Ketones Urine Occult Blood Urine Nitrite Urine Bilirubin Urine Urobilinogen Ur Leukocyte Esterase Ur Microscopic Review Urine Culture Comments Urine Sodium Nasal Adenovirus (PCR) Nasal B. parapertussis DNA (PCR) Nasal Coronavir 229E PCR Nasal Coronavir HKU1 PCR Nasal Coronavir NL63 PCR Nasal Coronavir OC43 PCR Nasal Enterovir/Rhinovir PCR Nasal Influenza B PCR Nasal Influenza A PCR Nasal Parainfluen 1 PCR Nasal Parainfluen 2 PCR Nasal Parainfluen 3 PCR Nasal Parainfluen 4 PCR Nasal RSV (PCR) Nasal B.pertussis DNA PCR Nasal C.pneumoniae (PCR) [place] Human Metapneumo PCR Nasal M.pneumoniae (PCR) Nasal SARS-CoV-2 (PCR) 07/13/20 07/13/20 07/13/20 05:05 05:05 17:44 WBC 17.6 H RBC 4.81 Hgb 14.2 Hct 41.8 L MCV 86.9 MCH 29.5 MCHC 34.0 RDW 13.2 Plt Count 287 MPV 10.3 Neut # (Auto) Not Reportable Lymph # (Auto) Not Reportable Haines # (Auto) Not Reportable Eos # (Auto) Not Reportable Baso # (Auto) Not Reportable Absolute Nucleated RBC Not Reportable Total Counted 100 Band Neuts % (Manual) 0 Abnorm Lymph % (Manual) 0 Nucleated RBC % Not Reportable Neutrophils # (Manual) 13.4 H Lymphocytes # (Manual) 1.8 Monocytes # (Manual) 2.5 H Eosinophils # (Manual) 0.0 Basophils # (Manual) 0.0 Differential Comment MANUAL DIFFERENTIAL WBC Morphology NORMAL APPEARANCE Platelet Estimate NORMAL (130-450,000) Platelet Morphology NORMAL APPEARANCE RBC Morph Micro Appear NORMAL APPEARANCE Sodium 139 Potassium 3.5 Chloride 101 Carbon Dioxide 23 Anion Gap 15.0 H BUN 73 H Creatinine 3.3 H Estimated GFR (MDRD) 23 L Glucose 139 H POC Whole Bld Glucose 122 H Calcium 8.3 L Phosphorus Magnesium 1.9 Total Bilirubin AST ALT Alkaline Phosphatase Total Protein Albumin Globulin Albumin/Globulin Ratio Lipase Urine Color Urine Clarity Urine pH Ur Specific [place] Urine Protein Urine Glucose (UA) Urine Ketones Urine Occult Blood Urine Nitrite Urine Bilirubin Urine Urobilinogen Ur Leukocyte Esterase Ur Microscopic Review Urine Culture Comments Urine Sodium Nasal Adenovirus (PCR) Nasal B. parapertussis DNA (PCR) Nasal Coronavir 229E PCR Nasal Coronavir HKU1 PCR Nasal Coronavir NL63 PCR Nasal Coronavir OC43 PCR Nasal Enterovir/Rhinovir PCR Nasal Influenza B PCR Nasal Influenza A PCR Nasal Parainfluen 1 PCR Nasal Parainfluen 2 PCR Nasal Parainfluen 3 PCR Nasal Parainfluen 4 PCR Nasal RSV (PCR) Nasal B.pertussis DNA PCR Nasal C.pneumoniae (PCR) [place] Human Metapneumo PCR Nasal M.pneumoniae (PCR) Nasal SARS-CoV-2 (PCR) - DIAGNOSTIC IMAGING Diagnostic Imaging Results: Final report reviewed Diagnostic Imaging Results Comments: CT of the abdomen and pelvis without contrast on July 11 revealed a large soft tissue density mass involving the distal stomach, pancreatic head and transverse colon highly suspicious for primary malignancy which could be arising from the stomach, colon or pancreas. Hepatic metastatic disease. Mesenteric and retroperitoneal metastatic lymphadenopathy. Noticed static lymphadenopathy also noted in the visualized pericardial fat. Moderate amount of ascites. No free intraperitoneal air. No dilated loops of bowel. Kidneys are normal in size, without hydronephrosis or nephrolithiasis. - TIME SPENT Time Spent in Discharge (Minutes): 42"
== END 2020-07-13 20:35 | disposition short-term general hospital (02) | DRG 436 ==
LOC: ED 16:12 → MS2 19:32
PROVIDERS: ADMIT Internal Medicine; ATTEND Internal Medicine
PROC: 0DBP8ZX Excision of Rectum, Via Natural or Artificial Opening Endoscopic, Diagnostic (ICD-10-PCS; 2020-07-13)
PROC: 0DB98ZX Excision of Duodenum, Via Natural or Artificial Opening Endoscopic, Diagnostic (ICD-10-PCS; 2020-07-13)
PROC: 0D9680Z Drainage of Stomach with Drainage Device, Via Natural or Artificial Opening Endoscopic (ICD-10-PCS; 2020-07-13)
PROC: 0DH68UZ Insertion of Feeding Device into Stomach, Via Natural or Artificial Opening Endoscopic (ICD-10-PCS; 2020-07-13)
PROC: 0DBK8ZX Excision of Ascending Colon, Via Natural or Artificial Opening Endoscopic, Diagnostic (ICD-10-PCS; principal; 2020-07-13 10:00)
PROC: 0DBL8ZX Excision of Transverse Colon, Via Natural or Artificial Opening Endoscopic, Diagnostic (ICD-10-PCS; 2020-07-13 10:00)
DX: C25.9 Malignant neoplasm of pancreas, unspecified (principal); N17.9 Acute kidney failure, unspecified; K56.690 Other partial intestinal obstruction; K31.1 Adult hypertrophic pyloric stenosis; C78.7 Secondary malignant neoplasm of liver and intrahepatic bile duct; C77.2 Secondary and unspecified malignant neoplasm of intra-abdominal lymph nodes; K92.0 Hematemesis; R18.0 Malignant ascites; K62.5 Hemorrhage of anus and rectum; C79.89 Secondary malignant neoplasm of other specified sites; N13.8 Other obstructive and reflux uropathy; C78.89 Secondary malignant neoplasm of other digestive organs; Z85.72 Personal history of non-Hodgkin lymphomas; Z87.891 Personal history of nicotine dependence; R19.09 Other intra-abdominal and pelvic swelling, mass and lump; D12.2 Benign neoplasm of ascending colon; D12.3 Benign neoplasm of transverse colon; D12.5 Benign neoplasm of sigmoid colon; K62.1 Rectal polyp; K21.9 Gastro-esophageal reflux disease without esophagitis; R33.9 Retention of urine, unspecified; R10.13 Epigastric pain; N40.1 Benign prostatic hyperplasia with lower urinary tract symptoms; I12.9 Hypertensive chronic kidney disease with stage 1 through stage 4 chronic kidney disease, or unspecified chronic kidney disease; N18.30 Chronic kidney disease, stage 3 unspecified; D64.9 Anemia, unspecified; K64.8 Other hemorrhoids; E66.9 Obesity, unspecified; Z68.32 Body mass index [BMI] 32.0-32.9, adult; Z20.822 Contact with and (suspected) exposure to COVID-19
CPT/HCPCS: 0202U; 36415; 71045; 74176; 80048; 80053; 81003; 83690; 83735; 84100; 84300; 85025; 85027; 96361; 96374; 96375; 99284; 99285; A9270; J7040; J7120; 81001; 87086

== ENCOUNTER 2020-07-13 20:38 | Outpatient (CLI) | payer OTHER | END 2020-07-13 20:39 | disposition short-term general hospital (02) | LOC: EMS 20:38 | PROVIDERS: ATTEND Specialist | DX: K86.89 Other specified diseases of pancreas (principal); C78.7 Secondary malignant neoplasm of liver and intrahepatic bile duct | CPT/HCPCS: A0425; A0426 ==